=== PATIENT | male | born 1970 | race Caucasian/White ===

== ENCOUNTER → 2017-10-11 | Outpatient (CLI) | payer MEDICARE, OTHER ==
[2017-10-11 10:47] LABS: CH 29.8; CHCM 32.6; HCT 50.4 % (39.0-53.0); HDW 2.45; HGB 16.1 gm/dL (13.0-17.5); MCH 29.4 pg (25.0-35.0); MCV 91.9 fL (80.0-100.0); Mean Platelet Volume 7.4; RBC 5.48 m/uL (4.30-5.90); RDW 15.3 % (11.5-15.5)
[2017-10-11 11:11] LABS: Anion Gap 10 mmol/L; Blood Urea Nitrogen 13 mg/dL (9-20); Carbon Dioxide 26 mmol/L (22-30); Chloride 105 mmol/L (98-107); Non-African American GFR(MDRD) >60 (>60 ml/min/1.73 sqM); Potassium 4.7 mmol/L (3.5-5.1); Sodium 141 mmol/L (137-145)
== END | disposition home or self-care (01) ==
LOC: LABPAT 10:05
PROVIDERS: ATTEND Internal Medicine Interventional Cardiology
DX: Z01.812 Encounter for preprocedural laboratory examination (principal); I25.10 Atherosclerotic heart disease of native coronary artery without angina pectoris
CPT/HCPCS: 36415; 80051; 82565; 84520; 85027

== ENCOUNTER → 2018-09-03 | Outpatient (CLI) | payer MEDICARE, OTHER ==
--- NOTE | 2018-09-03 23:15 | CT ---
EXAMINATION TYPE: CT chest w con DATE OF EXAM: 09/03/2018 COMPARISON: 12/21/2014 HISTORY: 48-year-old male Chest pain, hx of stents, left lung base abnormality TECHNIQUE: Contiguous axial scanning of the chest after the administration of 100 mL of Isovue 300. Coronal/sagittal reconstructions performed. CT DLP: 494.3mGycm. Automatic exposure control utilized for a dose reduction. FINDINGS: Heart normal size without pericardial effusion. Aorta normal caliber with conventional arch vessel branching anatomy. There are nonenlarged mediastinal lymph nodes are present. No thoracic lymphadenopathy by CT size cri teria. Some linear high density material at the left apex suggestive of surgical material. Nodular thickenin g along the left major fissure extending from the mid lung down to the base is unchanged as is some f ocal subpleural areas of nodularity at the left base in the subpleural region measuring up to 1.7 cm. Additional posterior left basilar subpleural nodularity measuring 1.2 cm is also unchanged as are mu ltiple additional subpleural pulmonary nodules posteromedially measuring up to 7 mm. There is mild centrilobular emphysema without consolidation or pleural effusion. 4 mm pulmonary nodule right mid lung along the minor fissure is unchanged. Tiny hiatal hernia. Visualized upper abdomen shows no gross abnormality. There is a small anterior splenule and stable daniels bcentimeter cyst anterior left kidney. Bones: No osseous destructive process. IMPRESSION: 1. COPD with mild emphysema. 2. Stable pleural parenchymal scarring at the left apex and suggestion of prior surgery. 3. Additional stable thickening and nodularity along the left major fissure as well as in the subpleu ral region of the left base with nodularity measuring up to 1.7 cm. Stability for over 3 years sugges ts a benign etiology. 4. No acute pulmonary process.
== END | disposition home or self-care (01) ==
LOC: RADCTMAIN 16:22
PROVIDERS: ATTEND Family Medicine
DX: J43.9 Emphysema, unspecified (principal); J98.4 Other disorders of lung; R91.8 Other nonspecific abnormal finding of lung field
CPT/HCPCS: 71260; Q9967

== ENCOUNTER → 2018-09-14 | Outpatient (CLI) | payer MEDICARE, OTHER ==
--- NOTE | 2018-09-14 11:49 | ECHOS ---
STRESS ECHOCARDIOGRAM INDICATIONS: Chest pain. MEDICATIONS: Seroquel, aspirin. BASELINE HEART RATE: 83 BASELINE BLOOD PRESSURE: 104/65 MAXIMUM HEART RATE: 161 MAXIMUM BLOOD PRESSURE: 143/76 85% MPHR: 145 100% MPHR: 170 METS: 7.1 MAXIMUM STAGE REACHED: 2 TOTAL EXERCISE TIME: 5:30 CLINICAL INFORMATION: Baseline EKG shows sinus rhythm, normal axis, normal intervals, with nonspecific ST-T wave changes. Patient exercised on Tor protocol for a total of 5.5 minutes achieving 7 METS, 95% of predicted maximal heart rate without chest pain or diagnostic ST-segment depression. Baseline echo shows mildly enlarged left ventricle with moderate to severe LV dysfunction with an ejection fraction of 35%. There is hypokinesis involving inferior and inferoposterior wall suggestive of prior myocardial infarction. Post exercise there is hyperdynamic response of the anterior wall, anteroseptum in the lateral wall. Inferior inferoposterior and inferoseptal wall remain hypokinetic. CONCLUSION: 1. Poor exercise tolerance. 2. Negative stress test by EKG criteria. 3. Abnormal stress echo showing evidence of prior myocardial infarction with ischemic cardiomyopathy, moderate left ventricular dysfunction without any ischemia. MMODL / IJN: [id number] /
== END ==
LOC: RADNMMAIN 10:04
PROVIDERS: ATTEND Family Medicine
DX: I25.2 Old myocardial infarction (principal); I25.9 Chronic ischemic heart disease, unspecified; R07.9 Chest pain, unspecified; R06.2 Wheezing
CPT/HCPCS: C8930; Q9950; 93351

== ENCOUNTER 2023-10-30 00:24 | Inpatient (IN) | payer MEDICARE, OTHER ==
[2023-10-30] MEDS ORDERED: ATORVASTATIN 80 MG TAB PO STA (00:27)
[2023-10-30] MEDS ORDERED: HEPARIN SODIUM 1,000 UN/ML (10ML VL) IV ONE ×2 (00:27→01:10)
[2023-10-30] MEDS ORDERED: ONDANSETRON 4 MG/2 ML VIAL IVP STA (00:27)
[2023-10-30] MEDS ORDERED: NALOXONE 0.4 MG/ML 1 ML VIAL IV PRN (00:29)
[2023-10-30] MEDS ORDERED: SODIUM CHLORIDE 0.9% 1,000 ML IV ONE ×2 (00:34→01:35)
--- NOTE | 2023-10-30 00:35 | ED ---
General Adult HPI - General Chief complaint: Chest Pain Stated complaint: Chest pain Time Seen by Provider: 10/30/23 00:26 Source: EMS, RN notes reviewed, old records reviewed Mode of arrival: EMS - History of Present Illness Initial comments: 53-year-old male presenting with prehospital EKG showing ST segment elevation in the inferior leads. Patient having active chest pain and nausea vomiting. He states that he's been having intermittent chest pain for several weeks but then this acutely worsened within the past several hours and became associated with arm pain and significant nausea and vomiting. Patient has known coronary artery disease. - Related Data Home Medications Medication Instructions Recorded Confirmed QUEtiapine FUMARATE [SEROquel] 300 mg PO DAILY@1100 12/21/14 10/30/23 Allergies Allergy/AdvReac Type Severity Reaction Status Date / Time No Known Allergies Allergy Verified 10/30/23 07:23 Review of Systems ROS Statement: Those systems with pertinent positive or pertinent negative responses have been documented in the HPI. ROS Other: All systems not noted in ROS Statement are negative. Past Medical History Past Medical History: Coronary Artery Disease (CAD), Chest Pain / Angina, Hyperlipidemia, Hypertension, Myocardial Infarction ([place]) Additional Past Medical History / Comment(s): multipersonality disorder Last Myocardial Infarction Date:: NOV 2013 History of Any Multi-Drug Resistant Organisms: None Reported Past Surgical History: Heart Catheterization With Stent Additional Past Surgical History / Comment(s): nasal surg as child, chest tube for spontaneous pneumothorax Past Anesthesia/Blood Transfusion Reactions: No Reported Reaction Date of Last Stent Placement:: 2015 Past Psychological History: Anxiety, Bipolar, Depression, Schizophrenia Past Alcohol Use History: Abuse Past Drug Use History: None Reported - Past Family History Mother Family Medical History: No Reported History Father Family Medical History: No Reported History Additional Family Medical History / Comment(s): of "old age" General Exam General appearance: alert, in distress Head exam: Present: atraumatic, normocephalic Eye exam: Present: normal appearance, PERRL ENT exam: Present: normal exam Neck exam: Present: normal inspection Respiratory exam: Present: normal lung sounds bilaterally. Absent: respiratory distress, wheezes Cardiovascular Exam: Present: normal rhythm, tachycardia GI/Abdominal exam: Present: soft. Absent: distended, tenderness, guarding Neurological exam: Present: alert, oriented X3, CN II-XII intact. Absent: motor sensory deficit Psychiatric exam: Present: anxious Skin exam: Present: intact, diaphoretic, pallor Course Vital Signs 10/30/23 10/30/23 10/30/23 00:26 00:30 00:45 Temperature 97.9 F Pulse Rate 130 H 130 H 103 H Respiratory 18 18 18 Rate Blood Pressure 113/98 136/88 127/85 O2 Sat by Pulse 95 98 98 Oximetry Medical Decision Making - Medical Decision Making Was pt. sent in by a medical professional or institution (, PA, TABLEAU ANALYST, urgent care, hospital, or long term...) When possible be specific @ -No Did you speak to anyone other than the patient for history (EMS, parent, family, police, friend...)? What history was obtained from this source @ -Emetics Did you review nursing and triage notes (agree or disagree)? Why? @ -I reviewed and agree with nursing and triage notes Were old charts reviewed (outside hosp., previous admission, EMS record, old EKG, old radiological studies, urgent care reports/EKG's, long term records)? Report findings @ -No old charts were reviewed Differential Diagnosis (chest pain, altered mental status, abdominal pain women, abdominal pain men, vaginal bleeding, weakness, fever, dyspnea, syncope, headache, dizziness, GI bleed, back pain, seizure, CVA, palpatations, mental health, musculoskeletal)? @ -Differential Chest Pain: Stable Angina, Unstable Angina, STEMI, NSTEMI Aortic Dissection, Pneumothorax, Musculoskeletal, Esophageal Spasm GERD, Cholecystitis, Pancreatitis, Zoster, this is not meant to be an all-inclusive list. EKG interpreted by me (3pts min.). @ Prehospital EKG showing ST segment elevation inferiorly. EKG in the emergency department showing a ventricular rate of 140, MN interval 140, QRS duration 98, QTC 3 X-rays interpreted by me (1pt min.). @ -None done CT interpreted by me (1pt min.). @ -None done U/S interpreted by me (1pt. min.). @ -None done What testing was considered but not performed or refused? (CT, X-rays, U/S, labs)? Why? @ -None What meds were considered but not given or refused? Why? @ -None Did you discuss the management of the patient with other professionals (professionals i.e. , PA, TABLEAU ANALYST, lab, RT, psych nurse, mental health social worker, probe operator, teacher, air defence officer, briefcase sewer)? Give summary @ Dr. Wagner covering for cardiology Was smoking cessation discussed for >3mins.? @ -No Was critical care preformed (if so, how long)? @ -No Were there social determinants of health that impacted care today? How? (Homelessness, low income, unemployed, alcoholism, drug addiction, transportation, low edu. Level, literacy, decrease access to med. care, custodial, rehab)? @ -No Was there de-escalation of care discussed even if they declined (Discuss DNR or withdrawal of care, Hospice)? DNR status @ -No What co-morbidities impacted this encounter? (DM, HTN, Smoking, COPD, CAD, Cancer, CVA, ARF, Chemo, Hep., AIDS, mental health diagnosis, sleep apnea, morbid obesity)? @ -[Known coronary artery disease Was patient admitted / discharged? Hospital course, mention meds given and route, prescriptions, significant lab abnormalities, going to OR and other pertinent info. @ -53-year-old male with prehospital EKG showing ST segment elevation in the inferior leads. Engine Mechanic was activated. Patient presents in extremis, vomiting, diaphoretic, with active chest pain. Patient's will be taken urgently to the Engine Mechanic. Case discussed both with Dr. Wagner and Dr. Traylor, patient been given aspirin prehospital as well as nitroglycerin which he took at home. He is given Lipitor, heparin, Zofran in the emergency department. Undiagnosed new problem with uncertain prognosis? @ -No Drug Therapy requiring intensive monitoring for toxicity (Heparin, Nitro, Insulin, Cardizem)? @ -No Were any procedures done? @ -No Diagnosis/symptom? @ STEMI Acute, or Chronic, or Acute on Chronic? @ -Acute Uncomplicated (without systemic symptoms) or Complicated (systemic symptoms)? @ -default Side effects of treatment? @ -No Exacerbation, Progression, or Severe Exacerbation? @ -No Poses a threat to life or bodily function? How? (Chest pain, [place], [place], pneumonia, PE, COPD, DKA, ARF, appy, cholecystitis, CVA, Diverticulitis, Homicidal, Suicidal, threat to staff... and all critical care pts) @ Yes, STEMI - Lab Data Result diagrams: 12/19/23 03:36 10/30/23 07:25 Disposition Clinical Impression: STEMI (ST elevation myocardial infarction) Disposition: ADMITTED IP TO THIS HOSP Condition: Serious Is patient prescribed a controlled substance at d/c from ED?: No
[2023-10-30] MEDS ORDERED: IV FLUID CONTINUATION 1,000 ML IV ONE (00:51)
--- NOTE | 2023-10-30 00:58 | P.CRDCN ---
History of Present Illness History of present illness: HISTORY OF PRESENTING ILLNESS This is a 53-year-old with past medical history significant for CAD status post multiple PCI, last 2017, medical noncompliance, tobacco abuse. He does not follow my office with any videotape operator. He had LAD stenting to his LAD in 2017 however has had a number procedures 2013. He states he got sick of taking medications and therefore has not been taking any for quite some time. He has been noticing off and on chest pain over the last 1-2 months and was hoping it would go away on its own. Chest pain radiating down his left arm felt similar to his MIs in the past. It has been going on for 2 months with exertion. Tonight however pain started when he was not doing anything associated with nausea, diaphoresis and shortness breath. EKG initially from EMS showed Q waves 3 aVF with [address] elevation in 3 and aVF. Repeat EKG) presentation shows sinus tachycardia, normal axis, continued Q waves with minimal 0.[address] elevation 3 and [address]VF and diffuse ST depressions in the lateral leads. He states he is willing to take at least blood thinners. He states he does not want undergo bypass. He is still smoking. Occasional alcohol. Denies illicit drugs. Chest pain on presentation 8/10 And Currently Improved to a 2 Out Of 10. REVIEW OF SYSTEMS At the time of my exam: CONSTITUTIONAL: Denies fever or chills. CARDIOVASCULAR: +chest pain, +shortness of breath, no orthopnea, PND or palpitations. RESPIRATORY: Denies cough. GASTROINTESTINAL: Denies abdominal pain, diarrhea, constipation, nausea or vomiting. MUSCULOSKELETAL: Denies myalgias. NEUROLOGIC: Denies numbness, tingling or weakness. ENDOCRINE: Denies fatigue, weight change, polydipsia or polyurina. GENITOURINARY: Denies burning, hematuria or urgency with micturation. HEMATOLOGIC: Denies history of anemia or bleeding. PHYSICAL EXAMINATION Vital signs reviewed. CONSTITUTIONAL: No apparent distress. HEENT: Head is normocephalic. Pupils are equal, round. Sclerae anicteric. Mucous membranes of the mouth are moist. No JVD. No carotid bruit. CHEST EXAMINATION: Lungs are clear to auscultation. No chest wall tenderness is noted on palpation or with deep breathing. HEART EXAMINATION: Regular rate and rhythm. S1, S2 heard. No murmurs, gallops or rub. ABDOMEN: Soft, nontender. Positive bowel sounds. EXTREMITIES: 2+ peripheral pulses, no lower extremity edema and no calf tenderness. NEUROLOGIC EXAMINATION: Patient is awake, alert and oriented x3. ASSESSMENT 1. Acute coronary syndrome, initial Inferior STEMI however ST elevations have improved and inferior leads have Q waves with possible acute process. 2. CAD with prior history of PCI 3. Hypertension 4. Tobacco abuse 5. Medical noncompliance PLAN Patient's initial EKG showing more ST elevations however additionally has Q waves inferiorly. Likely some degree of subacute process with symptoms going on for 2 months however much worsened tonight. His chest pain has somewhat improved sense aspirin and heparin. He is still however having ongoing chest pain discussed urgent heart catheterization with possible PCI. Discussed tobacco cessation. Discussed medical compliance. Past Medical History Past Medical History: Coronary Artery Disease (CAD), Chest Pain / Angina, Hyperlipidemia, Hypertension, Myocardial Infarction ([place]) Additional Past Medical History / Comment(s): multipersonality disorder Last Myocardial Infarction Date:: NOV 2013 History of Any Multi-Drug Resistant Organisms: None Reported Past Surgical History: Heart Catheterization With Stent Additional Past Surgical History / Comment(s): nasal surg as child, chest tube for spontaneous pneumothorax Past Anesthesia/Blood Transfusion Reactions: No Reported Reaction Date of Last Stent Placement:: 2015 Past Psychological History: Anxiety, Bipolar, Depression, Schizophrenia Past Alcohol Use History: Abuse Past Drug Use History: None Reported - Past Family History Mother Family Medical History: No Reported History Medications and Allergies Home Medications Medication Instructions Recorded Confirmed Type Aspirin 325 mg PO DAILY 12/21/14 10/12/17 History QUEtiapine FUMARATE [SEROquel] 150 mg PO HS 12/21/14 10/12/17 History Atorvastatin Calcium [Lipitor] 80 mg PO HS 10/11/17 10/12/17 History Allergies Allergy/AdvReac Type Severity Reaction Status Date / Time No Known Allergies Allergy Verified 10/30/23 00:30 Physical Exam Vitals: Vital Signs Temp Pulse Resp BP Pulse Ox 10/30/23 00:26 97.9 F 130 H 18 113/98 95 Intake and Output 10/29/23 10/29/23 10/30/23 14:59 22:59 06:59 Other: Weight 102.965 kg Results Current Medications Generic Name Dose Route Start Last Admin Trade Name Freq PRN Reason Stop Dose Admin Sodium Chloride 1,000 mls @ 999 mls/hr 10/30/23 00:34 10/30/23 00:38 Saline 0.9% IV 10/30/23 01:34 999 mls/hr .Q1H1M ONE Administration Naloxone HCl 0.2 mg 10/30/23 00:29 Naloxone 0.4 Mg/Ml 1 Ml Vial IV Q2M PRN Opioid Reversal Intake and Output 10/29/23 10/29/23 10/30/23 14:59 22:59 06:59 Other: Weight 102.965 kg Patient Weight 10/30/23 06:59 Weight 102.965 kg
[2023-10-30 01:00] LABS: Basophils # (A) 0.1 k/uL (0-0.2); Basophils % (A) 1 %; Eosinophils # (A) 0.1 k/uL (0-0.7); Eosinophils % (A) 1 %; HCT 48.5 % (39.0-53.0); HGB 16.3 gm/dL (13.0-17.5); Lymphocytes # (A) 4.9 k/uL (1.0-4.8); Lymphocytes % (A) 42 %; MCH 29.6 pg (25.0-35.0); MCHC 33.6 g/dL (31.0-37.0); MCV 88.3 fL (80.0-100.0); Mean Platelet Volume 7.7; Monocytes # (A) 0.5 k/uL (0-1.0); Monocytes % (A) 5 %; Neutrophils # (A) 5.7 k/uL (1.3-7.7); Neutrophils % (A) 48 %; Platelet Count 289 k/uL (150-450); RBC 5.49 m/uL (4.30-5.90); RDW 14.4 % (11.5-15.5); WBC 11.7 k/uL (3.8-10.6)
[2023-10-30] MEDS ORDERED: MIDAZOLAM 2 MG/2 ML VIAL IVP ONE (01:01)
[2023-10-30] MEDS ORDERED: fentaNYL (PF) 50 MCG/ML 2 ML AMP IVP ONE (01:01)
[2023-10-30] MEDS ORDERED: fentaNYL (PF) 50 MCG/ML 2 ML AMP ONE (01:02)
[2023-10-30] MEDS ORDERED: HEPARIN SODIUM 1,000 UN/ML (10ML VL) ONE (01:02)
[2023-10-30] MEDS ORDERED: LIDOCAINE 1% INJ 10MG/ML (20 ML MDV) SQ ONE (01:02)
[2023-10-30] MEDS ORDERED: LIDOCAINE 1% INJ 10MG/ML (20 ML MDV) ONE (01:03)
[2023-10-30] MEDS ORDERED: VERAPAMIL 2.5 MG/ML 2 ML AMP ONE (01:03)
[2023-10-30] MEDS ORDERED: VERAPAMIL SYRINGE (5 MG/10 ML) INTRAARTER ONE (01:05)
--- NOTE | 2023-10-30 01:06 | XR ---
EXAM: XR Chest, 1 View CLINICAL HISTORY: ITS.REASON XR Reason: chest pain TECHNIQUE: Frontal view of the chest. COMPARISON: Chest CT dated 09/03/18, XR Chest dated 04/02/16 FINDINGS: Lungs: Stable left basilar pleural-parenchymal opacities. Stable left apical opacity. No new opacities. Pleural space: See above. No pneumothorax. Heart: Unremarkable. No cardiomegaly. Mediastinum: Unremarkable. Normal mediastinal contour. Bones/joints: Unremarkable. No acute fracture. IMPRESSION: 1. No evidence of acute cardiopulmonary disease. 2. Stable left basilar pleural-parenchymal opacities. Stable left apical opacity. Stable chronic findings.
[2023-10-30 01:12] LABS: INR 0.9 (<1.2); Partial Thromboplastin Time 29.4 sec (22.0-30.0); Prothrombin Time 10.2 sec (10.0-12.5)
[2023-10-30] MEDS: NITROGLYCERIN 1000MCG/10ML SYRINGE INTRACORON ONE ×2 (01:12→01:14)
[2023-10-30 01:15] LABS: ALT 29 U/L (4-49); AST 24 U/L (17-59); African American GFR (CKD) >90 (>60 ml/min/1.73 sqM); Albumin 4.4 g/dL (3.5-5.0); Alkaline Phosphatase 124 U/L (38-126); Anion Gap 15 mmol/L; Blood Urea Nitrogen 18 mg/dL (9-20); Calcium 9.6 mg/dL (8.4-10.2); Carbon Dioxide 20 mmol/L (22-30); Chloride 102 mmol/L (98-107); Glucose 175 mg/dL (74-99); Magnesium 2.2 mg/dL (1.6-2.3); Non-African American GFR(CKD) 85 (>60 ml/min/1.73 sqM); Potassium 4.1 mmol/L (3.5-5.1); Sodium 137 mmol/L (137-145); Total Bilirubin 0.5 mg/dL (0.2-1.3); Total Protein 7.6 g/dL (6.3-8.2)
[2023-10-30] MEDS ORDERED: METOPROLOL TARTRATE 12.5 MG TAB PO STA (01:25)
[2023-10-30] MEDS ORDERED: IOPAMIDOL-370 100ML BTL INJ ONE (01:35)
[2023-10-30] MEDS ORDERED: HEPARIN SOD,PORK IN 0.45% NACL 25,000 UNIT in 0.45% NACL 1 250ML.BAG IV ONE (01:36)
[2023-10-30] MEDS: HEPARIN SOD,PORK IN 0.45% NACL 25,000 UNIT in 0.45% NACL 1 250ML.BAG IV SCH ×2 (01:40→23:55)
[2023-10-30] MEDS: NITROGLYCERIN-D5W PMX 50 MG in DEXTROSE/WATER 1 250ML.BAG IV SCH (01:40)
--- NOTE | 2023-10-30 01:40 | P.CARDCATH ---
Description of Procedure: PROCEDURES PERFORMED: Left heart catheterization, bilateral coronary angiography, ultrasound guided arterial access INDICATION: Non-STEMI, acute coronary syndrome CONSENT:I have discussed the risks, benefits and alternative therapies for the above-mentioned procedure and for both sedation/analgesia as well as necessary blood product administration, if indicated, as they pertain to this patient. The patient has indicated understanding and acceptance of the risks and procedures discussed. PROCEDURE: After the risks, benefits and alternatives of the above mentioned procedure explained in detail with the patient, informed consent was obtained. Patient was taken to the catheterization lab and prepped and draped in usual fashion. Ultrasound guidance was used to assess for arterial access. 1% lidocaine was used to anesthetize the right radial artery. A 6-[place] sheath was placed in the right radial artery using modified Seldinger technique and ultrasound guidance. Left coronary angiography was performed with a 5-[place] JL 3.5 catheter and right coronary angiography was performed with a 5-[place] AR2 catheter in various views. A 5-[place] AR2 catheter was inserted into the left ventricle and pressure measurements were obtained. Patient with complex anatomy with culprit lesion possibly very small caliber RCA feeding collaterals to the circumflex with additional proximal LAD disease at the bifurcation. Circumflex stenosis is at the level of prior stenting from 2012. Patient currently states he is having 0-1 chest pain and EKG showing marked Q waves with ST elevations. Therefore we will attempt nitro drip, beta dede and heparin drip and evaluated patient for bypass. The right radial sheath was removed and a TR band was placed with hemostasis achieved. The patient tolerated the procedure well. Patient was transported back to the post catheterization holding area in stable condition. Conscious Sedation: Patient was monitored under the direct supervision of myself for conscious sedation using Versed and fentanyl for a total duration of 22 minutes HEMODYNAMICS: Aorta: 106/66 LV: 109/10, LVEDP 14 SELECTIVE CORONARY ARTERIOGRAPHY: LEFT MAIN: The left main is a large caliber vessel which bifurcates into the LAD and circumflex. There is mild distal 10% left main disease LEFT ANTERIOR DESCENDING CORONARY ARTERY: LAD is a large caliber vessel which wraps around to the apex. There is a proximal LAD 85% stenosis just prior to bifurcation of diagonal and LAD. There is a mid LAD stent just passed diagonal 1 branch which has a 30-40% in-stent stenosis. Mid LAD has a 40% stenosis. Apical LAD is free of disease. LEFT CIRCUMFLEX CORONARY ARTERY: Left circumflex is a moderate to large caliber vessel which supplies the PDA and is the dominant vessel. There is long diffuse 50-60% proximal circumflex stenosis. There are 2 small caliber OM1 and OM 2 branches and then a moderate caliber OM 3. Just after OM 3, there is 100% stenosis at the site of prior stenting. RIGHT CORONARY ARTERY: The right coronary artery is a small caliber vessel which gives off an acute marginal branch and is nondominant. There is a mid RCA 99% stenosis. There are right to left collaterals to the distal circumflex. FINAL IMPRESSION: 1. Multivessel CAD as described above including 99% small-caliber mid RCA, 50- 60% proximal circumflex, 100% mid circumflex, 85% proximal LAD stenosis. 2. Normal left sided filling pressures PLAN: 1. Aggressive risk factor modification per most recent ACC/AHA guidelines. 2. Patient with complex coronary artery disease and likely culprit vessel is small caliber RCA which is nondominant however supplying collaterals to distal circumflex. Small-caliber vessel and likely would not be able place a stent, circumflex more likely subacute to chronic with collaterals and also at the site of prior stenting with increased risk of restenosis of any further stenting. Additionally has already undergone stenting of the LAD with 85% proximal LAD stenosis at the level of bifurcation. Given 0 to minimal chest pain we will attempt nitro and antianginals with low-dose metoprolol and evaluated the patient for CABG as this would be his best option for revascularization. Patient initially hesitant for any discussion of surgery however after further discussion patient is agreeable to further assessment.
[2023-10-30] MEDS ORDERED: RX INFO: IV CONTRAST WAS GIVEN 1 EACH MISC MISCELLANE PRN (01:47)
[2023-10-30 01:59] LABS: Glucose,Whole Blood 101 mg/dL (70-110)
[2023-10-30] MEDS ORDERED: NITROGLYCERIN-D5W PMX 50 MG in DEXTROSE/WATER 1 250ML.BAG IV SCH (02:00)
[2023-10-30] MEDS: METOPROLOL TARTRATE 12.5 MG TAB PO SCH ×4 (02:32→21:03)
[2023-10-30] MEDS: SODIUM CHLORIDE 0.9% 1,000 ML IV SCH ×2 (02:35→18:18)
[2023-10-30 02:49] LABS: Basophils # (A) 0.1 k/uL (0-0.2); Basophils % (A) 1 %; Eosinophils # (A) 0.1 k/uL (0-0.7); Eosinophils % (A) 1 %; HCT 43.6 % (39.0-53.0); HGB 14.4 gm/dL (13.0-17.5); Lymphocytes # (A) 2.2 k/uL (1.0-4.8); Lymphocytes % (A) 22 %; MCH 29.6 pg (25.0-35.0); MCHC 33.1 g/dL (31.0-37.0); MCV 89.4 fL (80.0-100.0); Mean Platelet Volume 7.8; Monocytes # (A) 0.5 k/uL (0-1.0); Monocytes % (A) 5 %; Neutrophils # (A) 7.2 k/uL (1.3-7.7); Neutrophils % (A) 71 %; Platelet Count 237 k/uL (150-450); RBC 4.88 m/uL (4.30-5.90); RDW 14.3 % (11.5-15.5); WBC 10.1 k/uL (3.8-10.6)
[2023-10-30 03:10] LABS: Prothrombin Time 10.9 sec (10.0-12.5)
[2023-10-30 07:51] LABS: African American GFR (CKD) >90 (>60 ml/min/1.73 sqM); Anion Gap 4 mmol/L; Blood Urea Nitrogen 15 mg/dL (9-20); Calcium 8.8 mg/dL (8.4-10.2); Carbon Dioxide 25 mmol/L (22-30); Chloride 107 mmol/L (98-107); Glucose 110 mg/dL (74-99); Non-African American GFR(CKD) >90 (>60 ml/min/1.73 sqM); Sodium 136 mmol/L (137-145)
[2023-10-30] MEDS: ASPIRIN 81 MG PO SCH (08:10)
[2023-10-30] MEDS: HEPARIN SODIUM 1,000 UN/ML (10ML VL) IV PRN ×2 (08:10→15:40)
--- NOTE | 2023-10-30 09:32 | PN ---
PROGRESS NOTE HISTORY: Mr. Harding is in sinus rhythm. He presented with a [id number] TX. Cardiac cath revealed severe triple-vessel disease. He has had multiple stents in the past. He smokes 1-1/2 packs a day. He will be better off with bypass surgery. Dr. Wagner talked to him earlier, and I spoke to him as well today, advised that he will need to make some serious lifestyle changes and also be compliant with medications. PHYSICAL EXAMINATION: VITAL SIGNS: Stable. His chest pain has improved. Blood pressure is about 95 to 105 systolic. Urine output is fair, was on 5 mcg of nitroglycerin drip and also heparin drip. Dr. Sebastian has seen him and workup is in progress for aortocoronary bypass surgery. Vital signs are stable. NECK: No JVD. HEART: S1, S2 heard normally. Short systolic murmur noted. LUNGS: Revealed decent air entry. ABDOMEN: Soft. EXTREMITIES: Lower extremities reveal diminished pulses. Cath site in the right radial is clean and dry. Recommendation for aortocoronary bypass surgery, lifestyle changes, and compliance with medications. Workup in progress. MMODL / IJN: [id number] /
--- NOTE | 2023-10-30 10:03 | US ---
EXAMINATION TYPE: US carotid duplex BILAT DATE OF EXAM: 10/30/2023 COMPARISON: NONE CLINICAL INDICATION: Male, 53 years old with history of preop cardiac surgery; Preop cardiac surgery. TECHNIQUE: Carotid duplex ultrasound examination. Indirect Doppler criteria was utilized. FINDINGS: EXAM MEASUREMENTS: RIGHT: Peak Systolic Velocity (PSV) cm/sec ----- Right CCA: 87.5 ----- Right ICA: 149.6 ----- Right ECA: 176.6 ICA/CCA ratio: 1.7 RIGHT: End Diastole cm/sec ----- Right CCA: 20.4 ----- Right ICA: 47.8 ----- Right ECA: 11.0 LEFT: Peak Systolic Velocity (PSV) cm/sec ----- Left CCA: 97.4 ----- Left ICA: 196.6 ----- Left ECA: 168.6 ICA/CCA ratio: 2.0 LEFT: End Diastole cm/sec ----- Left CCA: 17.1 ----- Left ICA: 24.6 ----- Left ECA: 15.0 VERTEBRALS (direction of flow): Right Vertebral: Antegrade Left Vertebral: Flow appears to be bidirectional, above and below the baseline.-Question partial/in complete subclavian steel? Rhythm: Normal GLOBAL SAFETY OFFICER NOTES: Minimal plaque seen within bilateral bulbs. Elevated velocities seen within bila teral ICA, right ECA, left bulb, and left ECA. IMPRESSION: Atheromatous plaquing contributing to moderate stenosis, between 50 and 69%, bilateral internal carot id arteries based on velocity. Criteria for Assigning % of Stenosis / Diameter reduction (Estimation based on the indirect measurements of the internal carotid artery velocities (ICA PSV). 1. Normal (no stenosis)=ICA PSV < 125 cm/s: ratio < 2.0: ICA EDV<40 cm/s. 2. Less than 50% stenosis=ICA PSV < 125 cm/s: ratio < 2.0: ICA EDV<40 cm/s. 3. 50 to 69% stenosis=ICA PSV of 125 to 230 cm/s: ration 2.0 ? 4.0: ICA EDV 40-100 cm/s. 4. Greater than 70% stenosis to near occlusion= ICA PSV > 230 cm/s: ratio > 4.0: ICA EDV > 100 cm/s. 5. Near occlusion= ICA PSV velocities may be low or undetectable: variable ratio and ICA EDV. 6. Total occlusion=unable to detect flow.
--- NOTE | 2023-10-30 10:04 | US ---
EXAMINATION TYPE: Pre-Operative Non-Invasive Evaluation of the hand for Potential Radial Artery Pepito chang, Measurements only DATE OF EXAM: 10/30/2023 9:32 AM CLINICAL INDICATION: Male, 53 years old with history of measurements only; Pre op cardiac surgery SIDE PERFORMED: Left TECHNIQUE: Radial artery is measured utilizing real time linear array sonography. Dominant hand: Left Duplex Findings: Radial Artery: Color flow seen Measurements in mm, transverse view: Left Radial: Proximal: 5.2 x 4.1 mm Mid: 4.3 x 3.9 mm Distal: 4.0 x 3.5 mm IMPRESSION: 1. No suspicious stenosis left radial artery.
[2023-10-30] MEDS ORDERED: QUEtiapine 100 MG TAB PO SCH (11:00)
--- NOTE | 2023-10-30 11:35 | US ---
EXAMINATION TYPE: US vein mapping BIL DATE OF EXAM: 10/30/2023 9:56 AM COMPARISON: NONE CLINICAL INDICATION: Male, 53 years old with history of preop cardiac surgery; Preop cardiac surgery. Patient is poor historian. SIDE PERFORMED: Bilateral TECHNIQUE: Lower extremity saphenous vein is examined and measured utilizing real time linear array sonography. Patient History: Smoker: yes Heart Disease: yes Previous DVT: no Vascular Surgery: yes, hx cardiac stents Discoloration: no Hypertension: patient unsure Diabetes: no Paralysis: no Varicosities: no Edema: no DUPLEX FINDINGS: Greater Saphenous: Color flow seen Measurements in mm: Right Greater Saphenous: Groin: 6.6 x 6.0 mm High Thigh: 5.1 x 3.9 mm Mid Thigh: 5.1 x 3.9 mm Above Knee: 3.8 x 3.5 mm Knee: 5.0 x 3.6 mm Below Knee: 4.3 x 3.6 mm Mid Calf: 3.5 x 2.4 mm At Ankle: 4.7 x 3.2 mm Left Greater Saphenous: Groin: 5.7 x 6.3 mm High Thigh: 3.9 x 4.2 mm Mid Thigh: 5.5 x 4.1 mm Above Knee: 4.4 x 3.5 mm Knee: 4.6 x 3.2 mm Below Knee: 3.8 x 3.4 mm Mid Calf: 3.9 x 3.5 mm At Ankle: 3.4 x 2.9 mm IMPRESSION: 1. Vein mapping for surgical evaluation
[2023-10-30 11:49] LABS: Hepatitis A Antibody IgM Nonreactive; Hepatitis B Core IgM Nonreactive; Hepatitis B Surface Antigen Nonreactive; Hepatitis C IgG Antibody Nonreactive
--- NOTE | 2023-10-30 12:36 | CT ---
EXAMINATION TYPE: CT chest wo con CT DLP: 541.4 mGycm, Automated exposure control for dose reduction was used. DATE OF EXAM: 10/30/2023 11:16 AM COMPARISON: None. . CLINICAL INDICATION:Male, 53 years old with history of eval aorta for calcification, clampability; PH H, eval aorta for calcification, clampability TECHNIQUE: Multiple axial images were obtained through the chest. Sagittal and coronal reformats were created for review. Contrast used: mL of (None if empty) Oral contrast used: (None if empty) FINDINGS: Exam is limited by lack of contrast. LOWER NECK: No significant findings. HEART: Upper normal in size. Moderate to heavy coronary arterial calcifications, greatest on the left . Mitral annular calcification suggested. No significant pericardial effusion. VASCULATURE: Aorta appears normal in size and contour. No TAA is seen. There is mild/moderate scatte red calcified plaque, mostly along the arch, origins of the brachiocephalic and left subclavian arter ies, and distributed throughout the descending and upper abdominal aorta. There is a partially visual ized infrarenal aortic aneurysm measuring at least 4.2 x 3.9 cm, however incompletely assessed. Pulmonary trunk measures 3.3 cm, this can be seen with pulmonary hypertension. MEDIASTINUM: No gross evidence of adenopathy. LUNGS/ PLEURA: Mild emphysematous changes. Linear and bandlike areas of presumed scarring in the left lung. Scarring and linear radiodensities towards the left lung apex, may reflect postoperative glez es such as from partial pneumonectomy. There are multiple areas of mild pleural thickening throughout the left hemithorax, not definitely calcified. Some areas have a slightly nodular appearance without a discrete pleural-based mass seen. One could consider CT follow-up to ensure stability. No pleural effusion or pneumothorax. AIRWAY: Central airways are patent. Mild frothy secretion in the mid trachea on the right. MUSCULOSKELETAL: Mild diffuse degenerative changes. No clearly acute bony abnormalities. SOFT TISSUES: Nonenlarged bilateral axillary nodes. Small lipoma in the left pectoralis minor. UPPER ABDOMEN: Partially visualized AAA as above. Low-attenuation 2.3 cm left renal nodule superiorly , very likely a cyst. Smaller partially exophytic nodule anteriorly at this level, and posteriorly in the mid kidney, are not fully characterized, could be complex/hemorrhagic cysts versus solid lesions . Liver appears slightly heterogeneous. Gallbladder appears contracted. IMPRESSION: 1. Heart size upper normal. Moderate to heavy coronary arterial calcifications, greatest on the left . 2. Thoracic aorta appears normal in size and contour. No TAA is seen. Mild/moderate scattered calcif ied plaque, mostly along the arch, origins of the brachiocephalic and left subclavian arteries, and d istributed throughout the descending and upper abdominal aorta. 3. Partially visualized infrarenal abdominal aortic aneurysm measuring at least 4.2 x 3.9 cm, howeve r incompletely assessed. 4. Mildly prominent pulmonary trunk, can be seen with pulmonary hypertension. 5. Mild pulmonary emphysematous changes. Linear and bandlike areas of presumed scarring in the left lung. Multiple areas of mild pleural thickening throughout the left hemithorax, not definitely calcif ied. Some areas have a slightly nodular appearance without a discrete pleural-based mass seen. One co uld consider CT follow-up to ensure stability. 6. Left renal nodules, the largest is convincingly a cyst while two smaller lesions are nonspecific, could represent complex/hemorrhagic cysts with solid lesions not excluded. Further evaluation could begin with nonemergent outpatient renal ultrasound.
--- NOTE | 2023-10-30 12:57 | CA ---
Transthoracic Echo Report Name: Man Harding Age: 53 Gender: M : 1970 Exam Date: 10/30/2023 09:55 Exam Location: [place] [facility] Ht (in): 72 Wt (lb): 227 Ordering Physician: Chandrakant Wagner DO ([email or web address]) Attending/Referring Phys: [employer] Mindi Marcus RDCS Procedure CPT: Indications: RE: ACS Cardiac Hx: Technical Quality: Technically difficult study Contrast 1: Definity Total Dose (mL): 2 Contrast 2: Total Dose (mL): MEASUREMENTS (Male / Female) Normal Values 2D ECHO LV Diastolic Diameter PLAX 4.9 cm 4.2 - 5.9 / 3.9 - 5.3 cm LV Systolic Diameter PLAX 3.9 cm IVS Diastolic Thickness 1.3 cm 0.6 - 1.0 / 0.6 - 0.9 cm LVPW Diastolic Thickness 1.2 cm 0.6 - 1.0 / 0.6 - 0.9 cm LV Relative Wall Thickness 0.5 RV Internal Dim ED PLAX 2.8 cm LA Systolic Diameter LX 3.4 cm 3.0 - 4.0 / 2.7 - 3.8 cm LV Diastolic Volume MOD BP 121.1 cm??? 67 - 155 / 56 - 104 cm??? LV Systolic Volume MOD BP 66.6 cm??? / 19 - 49 cm??? LV Ejection Fraction MOD BP 45.0 % >= 55 % LV Cardiac Index MOD BP 1955.1 cm???/min???m??? LV Diastolic Volume MOD 4C 106.0 cm??? LV Systolic Volume MOD 4C 49.6 cm??? LV Ejection Fraction MOD 4C 53.2 % LV Cardiac Index MOD 4C 2025.5 cm???/min???m??? LV Diastolic Length 4C 8.7 cm LV Systolic Length 4C 7.6 cm LV Diastolic Volume MOD 2C 119.9 cm??? LV Systolic Volume MOD 2C 87.7 cm??? LV Ejection Fraction MOD 2C 26.8 % LV Cardiac Index MOD 2C 1154.3 cm???/min???m??? LV Diastolic Length 2C 7.4 cm LV Systolic Length 2C 7.4 cm LA Volume 62.5 cm??? / 22 - 52 cm??? LA Volume Index 27.0 cm???/m??? 16 - 28 cm???/m??? M-MODE Aortic Root Diameter MM 3.7 cm MV E Point Septal Separation 1.5 cm AV Cusp Separation MM 2.5 cm DOPPLER AV Peak Velocity 131.0 cm/s AV Peak Gradient 6.9 mmHg MV Area PHT 4.2 cm??? Mitral E Point Velocity 93.6 cm/s Mitral A Point Velocity 63.2 cm/s Mitral E to A Ratio 1.5 MV Deceleration Time 179.2 ms MV E' Velocity 11.0 cm/s Mitral E to MV E' Ratio 8.5 FINDINGS Left Ventricle Left ventricular ejection fraction is estimated at 45-50 %. Left ventricular cavity size normal. Mildly increased left ventricular wall thickness. Mildly increased left ventricular systolic volume. Inferior and inferoseptal hypokinesis Right Ventricle Normal right ventricular size. Unable to estimate the right ventricular systolic pressure. Right Atrium Normal right atrial size. Left Atrium Mildly increased left atrial volume. Mitral Valve Structurally normal mitral valve. No mitral stenosis, regurgitation or prolapse. Aortic Valve Trileaflet aortic valve. No aortic valve stenosis or regurgitation. Tricuspid Valve Structurally normal tricuspid valve. No tricuspid stenosis, regurgitation or prolapse. Pulmonic Valve Pulmonic valve not well visualized. No pulmonic regurgitation. Pericardium No pericardial effusion. Aorta Normal size aortic root and proximal ascending aorta. CONCLUSIONS Technically difficult study. Definity ECHO contrast used for improved visualization of the endocardial borders (inadequate visualization of two or more contiguous segments). Mildly impaired left ventricle systolic function with segmental wall motion abnormality Very limited Doppler study Previewed by: Dr. Dalton Lyn MD (Electronically Signed) Final Date: 30 October 2023 12:57
--- NOTE | 2023-10-30 13:18 | P.GSCN ---
History of Present Illness Consult date: 10/30/23 Reason for Consult: Coronary artery disease, STEMI this admission Requesting physician: Chandrakant Wagner History of present illness: This is a 53 year old male who follow outpatient with Dr. Traylor for primary care. He has a previous medical history of CAD with myocardial infarction with multiple previous PCI, hypertension, hyperlipidemia, spontaneous pneumothorax 25 years ago, multiple psychiatric diagnoses, current tobacco dependence since he was 4 years old, daily etoh use, and medication non-compliance. He presented to [facility] with complaints of exertional intermittent chest pain for the last 1-2 months, which suddenly increased in the last 24 hours with radiation down his left arm associated with shortness of breath, nausea, diaphoresis, and now was happening at rest. He presented via EMS, EKG demonstrated sinus rhythm with minimal elevation in lead 3 and aVf, and ST depression in the lateral leads. He was diagnosed with inferior wall STEMI and taken to the crime lab technician by Dr. Wagner. Heart cath demonstrated mid RCA stenosis 99%, proximal circumflex stenosis 50-60% with mid circumflex stenosis 100%, and proximal LAD stenosis 85%. Due to these findings consultation was placed to Dr. Sebastian from cardiothoracic surgery for surgical revascularization recommendations. Review of Systems ROS completed and negative except as noted - Cardiovascular Reports as per HPI, Reports chest pain, Reports shortness of breath - Gastrointestinal Reports nausea, Reports vomiting Past Medical History Past Medical History: Coronary Artery Disease (CAD), Chest Pain / Angina, Hyperlipidemia, Hypertension, Myocardial Infarction (TN) Last Myocardial Infarction Date:: NOV 2013 History of Any Multi-Drug Resistant Organisms: None Reported Past Surgical History: Heart Catheterization With Stent Additional Past Surgical History / Comment(s): nasal surg as child, chest tube for spontaneous pneumothorax Past Anesthesia/Blood Transfusion Reactions: No Reported Reaction Date of Last Stent Placement:: 2015 Past Psychological History: Anxiety, Bipolar, Depression, Schizophrenia Additional Psychological History / Comment(s): "multipersonality disorder" Smoking Status: Current every day smoker Past Alcohol Use History: Abuse Additional Past Alcohol Use History / Comment(s): 1-1 1/2ppd since age of 4, decreased drinking to a beer every few days from being a heavy drinker (6pack - 12 pack per week currently) Past Drug Use History: None Reported - Past Family History Mother Family Medical History: No Reported History Additional Family Medical History / Comment(s): of "old age" Father Family Medical History: No Reported History Additional Family Medical History / Comment(s): of "old age" Medications and Allergies Home Medications Medication Instructions Recorded Confirmed Type QUEtiapine FUMARATE [SEROquel] 300 mg PO DAILY@1100 12/21/14 10/30/23 History Allergies Allergy/AdvReac Type Severity Reaction Status Date / Time No Known Allergies Allergy Verified 10/30/23 07:23 Surgical - Exam Vital Signs Temp Pulse Resp BP Pulse Ox 97.9 F 130 H 18 113/98 95 10/30/23 00:26 10/30/23 00:26 10/30/23 00:26 10/30/23 00:26 10/30/23 00:26 CONSTITUTIONAL: Awake and alert, appears comfortable, cooperative, no pain, no acute distress EYES: Pupils equal, round, reactive to light, normal ocular movement ENT: Moist mucous membranes without oral lesions present NECK: No masses, no bruits, trachea midline RESPIRATORY: Lungs sounds diminished bilaterally. Respirations even, nonlabored. Currently on 2 L nasal cannula with oxygen saturation 93%. Strong cough. No chest wall deformities. No clubbing or cyanosis present CARDIOVASCULAR: S1, S2 present. Regular rate and rhythm, sinus rhythm on telemetry. Palpable peripheral pulses bilaterally. No edema present. No calf pain or tenderness noted. No significant lower extremity varicosities noted GASTROINTESTINAL: Abdomen soft, nontender, nondistended without masses or organomegaly noted. There is no rebound or guarding present. Active bowel sounds present 4 quadrants. GENITOURINARY: Deferred INTEGUMENTARY: Skin is warm and dry NEUROLOGIC: Cranial nerves II through XII intact, normal coordination, no obvious motor or sensory deficits, speech is normal MUSKULOSKELETAL: Able to move all extremities, strength equal bilaterally, normal posture PSYCHIATRIC: Alert and oriented to person place and time, appropriate affect, intact judgment and insight Results - Labs 10/30/23 02:00 10/30/23 07:25 Abnormal Lab Results - Last 24 Hours (Table) 10/30/23 10/30/23 10/30/23 Range/Units 00:41 00:41 02:00 WBC 11.7 H (3.8-10.6) k/uL Lymphocytes # 4.9 H (1.0-4.8) k/uL APTT 123.0 H* (22.0-30.0) sec Sodium (137-145) mmol/L Carbon Dioxide 20 L (22-30) mmol/L Glucose 175 H (74-99) mg/dL Troponin I (0.000-0.034) ng/mL 10/30/23 10/30/23 10/30/23 Range/Units 07:25 07:25 07:25 WBC (3.8-10.6) k/uL Lymphocytes # (1.0-4.8) k/uL APTT 31.6 H (22.0-30.0) sec Sodium 136 L (137-145) mmol/L Carbon Dioxide (22-30) mmol/L Glucose 110 H (74-99) mg/dL Troponin I 6.950 H* (0.000-0.034) ng/mL Diabetes panel 10/30/23 10/30/23 10/30/23 Range/Units 00:41 07:25 07:25 Sodium 137 136 L (137-145) mmol/L Potassium 4.1 4.0 (3.5-5.1) mmol/L Chloride 102 107 (98-107) mmol/L Carbon Dioxide 20 L 25 (22-30) mmol/L BUN 18 15 (9-20) mg/dL Creatinine 0.99 0.83 (0.66-1.25) mg/dL Glucose 175 H 110 H (74-99) mg/dL Hemoglobin A1c 5.6 (<=6.0) % Calcium 9.6 8.8 (8.4-10.2) mg/dL AST 24 (17-59) U/L ALT 29 (4-49) U/L Alkaline Phosphatase 124 (38-126) U/L Total Protein 7.6 (6.3-8.2) g/dL Albumin 4.4 (3.5-5.0) g/dL Thyroid panel 10/30/23 Range/Units 07:25 TSH 0.954 (0.465-4.680) mIU/L Calcium panel 10/30/23 10/30/23 Range/Units 00:41 07:25 Calcium 9.6 8.8 (8.4-10.2) mg/dL Albumin 4.4 (3.5-5.0) g/dL Pituitary panel 10/30/23 10/30/23 Range/Units 00:41 07:25 Sodium 137 136 L (137-145) mmol/L Potassium 4.1 4.0 (3.5-5.1) mmol/L Chloride 102 107 (98-107) mmol/L Carbon Dioxide 20 L 25 (22-30) mmol/L BUN 18 15 (9-20) mg/dL Creatinine 0.99 0.83 (0.66-1.25) mg/dL Glucose 175 H 110 H (74-99) mg/dL Calcium 9.6 8.8 (8.4-10.2) mg/dL TSH 0.954 (0.465-4.680) mIU/L Adrenal panel 10/30/23 10/30/23 Range/Units 00:41 07:25 Sodium 137 136 L (137-145) mmol/L Potassium 4.1 4.0 (3.5-5.1) mmol/L Chloride 102 107 (98-107) mmol/L Carbon Dioxide 20 L 25 (22-30) mmol/L BUN 18 15 (9-20) mg/dL Creatinine 0.99 0.83 (0.66-1.25) mg/dL Glucose 175 H 110 H (74-99) mg/dL Calcium 9.6 8.8 (8.4-10.2) mg/dL Total Bilirubin 0.5 (0.2-1.3) mg/dL AST 24 (17-59) U/L ALT 29 (4-49) U/L Alkaline Phosphatase 124 (38-126) U/L Total Protein 7.6 (6.3-8.2) g/dL Albumin 4.4 (3.5-5.0) g/dL - Imaging Chest x-ray: report reviewed, image reviewed EKG: image reviewed Additional studies: Heart catheterization films reviewed with Dr. Sebastian Assessment and Plan Assessment: Triple-vessel coronary artery disease, inferior wall STEMI this admission Chest pain, shortness of breath, secondary to above New finding of bilateral internal carotid artery stenosis 50-69% Bidirectional left vertebral flow, questionable partial/incomplete subclavian steal History of CAD with myocardial infarction with multiple previous PCI Hypertension Hyperlipidemia Spontaneous pneumothorax 25 years ago Multiple psychiatric diagnoses Current tobacco dependence since he was 4 years old Daily etoh use with history of abuse Medication non-compliance Plan: The patient was seen and examined sitting up in bed in the intensive care unit in no acute distress. is present. Chart/diagnostics reviewed. Dr. Sebastian did discuss risk factor modification with the patient after he stated he stopped taking his medications because he "doesn't believe in medicine". The usual perioperative course was discussed in detail with the patient and his , risks and benefits were reviewed, all questions were answered. The patient is willing to consider surgery. Preoperative testing initiated, we'll calculate STS risk score once completed and discuss with the patient. Recommend aspirin, statin, beta dede therapy. Patient was counseled regarding need for complete smoking cessation. Risk factor modification. Increase activity as tolerated. Once bedside spirometry completed will consult pulmonology for clearance and lung function optimization. Medical management of other comorbidities per internal medicine, cardiology. More recommendations to follow. Thank you Dr. Wagner for this consult. We will continue to follow along with you. I have personally seen and examined the patient, performed the documentation and the assessment and plan as written. Number of minutes spent on the visit: 30. TE Lenz
[2023-10-30 15:37] LABS: Chol/HDL Ratio 7.74 Ratio; LDL Cholesterol,Calculated 159.9 mg/dL (0.0-131.0)
[2023-10-30] MEDS: FOLIC ACID 1 MG TAB PO SCH (18:17)
[2023-10-30] MEDS: THIAMINE 100 MG TAB PO SCH (18:17)
[2023-10-30] MEDS ORDERED: ATORVASTATIN 40 MG TAB PO SCH (21:00)
[2023-10-30] MEDS: QUEtiapine 100 MG TAB PO SCH (21:05)
[2023-10-30] MEDS: MUPIROCIN 2% OINT 22 GM TUBE NASAL SCH (21:06)
[2023-10-31] MEDS: NITROGLYCERIN-D5W PMX 50 MG in DEXTROSE/WATER 1 250ML.BAG IV SCH (00:56)
[2023-10-31 03:48] LABS: Basophils # (A) 0.1 k/uL (0-0.2); Basophils % (A) 1 %; Eosinophils # (A) 0.1 k/uL (0-0.7); Eosinophils % (A) 1 %; HCT 43.6 % (39.0-53.0); HGB 14.7 gm/dL (13.0-17.5); Lymphocytes # (A) 3.9 k/uL (1.0-4.8); Lymphocytes % (A) 34 %; MCH 29.9 pg (25.0-35.0); MCHC 33.7 g/dL (31.0-37.0); MCV 88.7 fL (80.0-100.0); Mean Platelet Volume 7.3; Monocytes # (A) 0.5 k/uL (0-1.0); Monocytes % (A) 4 %; Neutrophils # (A) 6.6 k/uL (1.3-7.7); Neutrophils % (A) 58 %; Platelet Count 225 k/uL (150-450); RBC 4.91 m/uL (4.30-5.90); RDW 14.4 % (11.5-15.5); WBC 11.5 k/uL (3.8-10.6)
[2023-10-31 03:58] LABS: Prothrombin Time 10.6 sec (10.0-12.5)
[2023-10-31] MEDS: SODIUM CHLORIDE 0.9% 1,000 ML IV SCH (04:49)
--- NOTE | 2023-10-31 04:58 | HP ---
HISTORY AND PHYSICAL CHIEF COMPLAINT: Chest pain. HISTORY OF PRESENT ILLNESS: First known hospital admission for this 53-year-old male. He has not been in the office since March 2022. Does have a history of schizophrenia. He has always been uncooperative when it comes to annual physical exams, keeping followup appointments, etc. When he was seen in 2021, he was on Seroquel. Apparently, he has not been on any medications lately. He has been a smoker. He was told on numerous occasions that he should undergo routine annual studies such as lipid profile, blood sugar, renal functions, etc. He has been a fairly heavy smoker of at least a pack of cigarettes a day. 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 Apparently, 1 stent was placed, but he has significant atherosclerosis in another vessels. REVIEW OF SYSTEMS: At the present time, he is comfortable with no chest pain, or shortness of breath. He has had no arrhythmias. Past medical history, family history, and personal and social histories are otherwise unremarkable and unchanged from the history detailed above. PHYSICAL EXAMINATION: VITAL SIGNS: Blood pressure is 93/62 with a pulse of 78, respirations of 32. He is afebrile. GENERAL: Appeared to be comfortable. SKIN: Dry. HEAD, EARS, EYES, NOSE, MOUTH AND THROAT: Normal. CHEST: Clear. CARDIAC: Normal with sinus rhythm. ABDOMEN: Soft, nontender. EXTREMITIES: Normal. NEUROLOGICAL: He is intact. ASSESSMENT: He is admitted to the hospital with diagnoses of: 1. Acute ST elevation myocardial infarction. 2. Chronic obstructive pulmonary disease. 3. Schizophrenia. PLAN: Move forward with his cardiac care. It will be interesting to see if he becomes more compliant with regard to preventive services in the future. MMODL / IJN: [id number] /
[2023-10-31 09:08] LABS: African American GFR (CKD) >90 (>60 ml/min/1.73 sqM); Anion Gap 8 mmol/L; Blood Urea Nitrogen 13 mg/dL (9-20); Carbon Dioxide 26 mmol/L (22-30); Chloride 104 mmol/L (98-107); Glucose 89 mg/dL (74-99); Non-African American GFR(CKD) >90 (>60 ml/min/1.73 sqM); Sodium 138 mmol/L (137-145)
[2023-10-31] MEDS: METOPROLOL TARTRATE 12.5 MG TAB PO SCH ×2 (09:22→20:40)
[2023-10-31] MEDS: FOLIC ACID 1 MG TAB PO SCH (09:22)
[2023-10-31] MEDS: ASPIRIN 81 MG PO SCH (09:22)
[2023-10-31] MEDS: THIAMINE 100 MG TAB PO SCH (09:23)
[2023-10-31] MEDS: MUPIROCIN 2% OINT 22 GM TUBE NASAL SCH ×2 (09:24→20:42)
[2023-10-31] MEDS: HEPARIN SODIUM 1,000 UN/ML (10ML VL) IV PRN (11:01)
--- NOTE | 2023-10-31 11:40 | PN ---
PROGRESS NOTE SUBJECTIVE: Mr. Harding has severe triple-vessel disease and non-ST elevation OH. I am recommending he should have aortocoronary bypass surgery. The patient had a lot of questions. I spent a lot of time explaining to him the rationale for bypass surgery and the need to modify lifestyle and be compliant with medications thereafter. He is going to think this over and if he wishes to have surgery, we will have the cardiac surgery set him up. Yesterday he was seen at length by Dr. Sebastian, who also spoke to him as well. OBJECTIVE: VITALS: Stable. HEART: S1-S2 heard normally. No significant murmurs. LUNGS: Bilateral decent air entry. ABDOMEN: Unchanged. EXTREMITIES: Lower extremity exam is unchanged. Prognosis remains guarded. MMODL / IJN: [id number] /
--- NOTE | 2023-10-31 12:19 | P.PN ---
Subjective Progress Note Date: 10/31/23 Principal diagnosis: Triple-vessel coronary artery disease, inferior wall STEMI this admission, new finding of bilateral internal carotid artery stenosis 50-69%, bidirectional left vertebral flow, questionable partial/incomplete subclavian steal. History of CAD with myocardial infarction with multiple previous PCI, hypertension, hyperlipidemia, spontaneous pneumothorax 25 years ago, multiple psychiatric diagnoses, current tobacco dependence since he was 4 years old, daily etoh use with history of abuse, medication non-compliance The patient was seen and examined this morning at the bedside with present. He was seen yesterday by Dr. Sebastian who recommended open heart surgery. Preoperative testing was initiated. Will calculate STS risk score and discussed with the patient and his . Apparently he did indicate to both nursing and Dr. Polanco this morning that he was not sure he wanted to go through with open- heart surgery but will think about it. Denies any chest pain or shortness of breath currently. Remains in sinus rhythm and he was stable. We did discuss risk factor modification with the patient and his . No other new concerns at this point. Objective - Vital Signs Vital signs: Vital Signs Temp 98.6 F 10/31/23 08:00 Pulse 68 10/31/23 11:00 Resp 14 10/31/23 11:00 BP 112/78 10/31/23 11:00 Pulse Ox 93 L 10/31/23 11:00 FiO2 Intake & Output 10/30/23 10/31/23 10/31/23 18:59 06:59 18:59 Intake Total 723.933 857.079 674.706 Output Total 1450 1300 400 Balance -726.067 -442.921 274.706 Weight 101.2 kg Intake: IV 625 20 Sodium Chloride 0.9% 1, 625 20 000 ml @ 75 mls/hr IV . [id number] [facility] Rx#:[id number] Intake, IV Titration 98.933 127.079 134.706 Amount Heparin Sod,Pork in 0.45% 98.933 101.279 134.706 NaCl 25,000 unit In 0.45 % NaCl 1 250ml.bag @ 9. 712 UNITS/KG/HR 10 mls/hr IV .Q24H [facility] Rx#: [id number] Nitroglycerin-D5w Pmx 50 0 25.8 mg In Dextrose/Water 1 250ml.bag @ 10 MCG/MIN 3 mls/hr IV .Q24H [facility] Rx#: [id number] Oral 710 540 Output: Urine 1450 1300 400 Other: Voiding Method Urinal Urinal Urinal - Exam CONSTITUTIONAL: Appears comfortable, cooperative, no acute distress RESPIRATORY: Lungs sounds diminished bilaterally. Respirations even, nonlabored. Currently on room air with oxygen saturation 93%. CARDIOVASCULAR: S1, S2 present. Regular rate and rhythm, sinus rhythm on telemetry. Palpable peripheral pulses bilaterally. No edema present. No calf pain or tenderness noted GASTROINTESTINAL: Abdomen soft, nontender, nondistended. Active bowel sounds present 4 quadrants. Tolerating diet GENITOURINARY: Continues to void INTEGUMENTARY: Skin is warm and dry NEUROLOGIC: Cranial nerves II through XII intact MUSKULOSKELETAL: Able to move all extremities, strength equal bilaterally, gait normal PSYCHIATRIC: Alert and oriented to person place and time, appropriate affect, intact judgment and insight - Allied health notes Allied health notes reviewed: nursing - Labs CBC & Chem 7: 10/31/23 03:36 10/31/23 08:41 Labs: Abnormal Lab Results - Last 24 Hours (Table) 10/30/23 10/30/23 10/30/23 Range/Units 07:25 14:41 20:49 WBC (3.8-10.6) k/uL APTT 36.0 H 45.5 H (22.0-30.0) sec Sodium 136 L (137-145) mmol/L Glucose 110 H (74-99) mg/dL Troponin I (0.000-0.034) ng/mL Triglycerides 376.00 H (0.00-149.00) mg/dL Cholesterol 270.00 H (0.00-200.00) mg/dL LDL Cholesterol, Calc 159.9 H (0.0-131.0) mg/dL VLDL Cholesterol, Calc 75.20 H (5.00-40.00) mg/dL HDL Cholesterol 34.90 L (40.00-60.00) mg/dL 10/31/23 10/31/23 10/31/23 Range/Units 03:36 08:35 08:41 WBC 11.5 H (3.8-10.6) k/uL APTT 40.2 H (22.0-30.0) sec Sodium (137-145) mmol/L Glucose (74-99) mg/dL Troponin I 2.880 H* (0.000-0.034) ng/mL Triglycerides (0.00-149.00) mg/dL Cholesterol (0.00-200.00) mg/dL LDL Cholesterol, Calc (0.0-131.0) mg/dL VLDL Cholesterol, Calc (5.00-40.00) mg/dL HDL Cholesterol (40.00-60.00) mg/dL Assessment and Plan Assessment: Triple-vessel coronary artery disease, inferior wall STEMI this admission Chest pain, shortness of breath, secondary to above New finding of bilateral internal carotid artery stenosis 50-69% Bidirectional left vertebral flow, questionable partial/incomplete subclavian steal History of CAD with myocardial infarction with multiple previous PCI Hypertension Hyperlipidemia, cholesterol 270, LDL 159, triglycerides 376 Spontaneous pneumothorax 25 years ago Multiple psychiatric diagnoses Current tobacco dependence since he was 4 years old Daily etoh use with history of abuse Medication non-compliance Plan: Continue to maximize medical therapy with aspirin, statin, beta dede Increase activity, ambulate as tolerated Await bedside spirometry, once completed will consult pulmonology for clearance and lung function optimization Patient was counseled regarding need for complete smoking cessation, risk factor modification Medical management of other comorbidities per internal medicine, cardiology More recommendations to follow
--- NOTE | 2023-10-31 14:29 | US ---
EXAMINATION TYPE: US carotid duplex LT DATE OF EXAM: 10/31/2023 COMPARISON: Correlation 10/30/2023 carotid ultrasound. CLINICAL INDICATION: Male, 53 years old with history of possible subclavian steal on the left; Patien t had carotid doppler yesterday that questioned partial subclavian, cardiac team would like limited a ssessment of subclavian artery with doppler Left Vertebral: Some bidirectional flow is noted in the left vertebral artery. Left Subclavian Artery Prx: 336 cm/s Left Subclavian Artery Mid: 87 cm/s IMPRESSION: Transient midsystolic flow reversal in the left vertebral artery with markedly increased peak systoli c velocity in the proximal left subclavian artery. Correlate for significant proximal left subclavi an artery stenosis and early subclavian steal physiology. Consider assessing for potential symptoms o f subclavian steal during a challenge/provocative maneuver.
[2023-10-31] MEDS: HEPARIN SOD,PORK IN 0.45% NACL 25,000 UNIT in 0.45% NACL 1 250ML.BAG IV SCH (15:43)
--- NOTE | 2023-10-31 16:04 | P.CNPUL ---
History of Present Illness Consult date: 10/31/23 Requesting physician: Juana Sebastian Reason for consult: other (Critical care management) Chief complaint: Triple-vessel coronary artery disease, STEMI History of present illness: This is a pleasant 53-year-old male patient with a known history of coronary disease with previous multiple PCI's, hypertension, hyperlipidemia, spontaneous pneumothorax many years ago, chronic and ongoing tobacco dependence since age of 4, chronic and ongoing daily alcohol use and history of noncompliance. He pres ented to the emergency room yesterday just after midnight with complaints of chest pain. He was found to have ST segment elevation in the inferior leads and was taken directly to the [facility]. He is found to have multivessel coronary artery disease including a 99% small-caliber mid RCA, 50-60% proximal circumflex, 100% mid circumflex and 85% proximal LAD stenosis. He was recommended coronary artery bypass grafting. Echocardiogram revealed mildly impaired left ventricle systolic function with ejection fraction 45-50%. Carotid Dopplers revealed moderate stenosis between 50-70% bilaterally. Computed tomography scan of the chest revealed normal heart size. Moderate apical coronary artery calcifications. Mild pulmonary emphysematous changes with linear bandlike areas of scarring in the left lung. White count 11.5. Hemoglobin 14.7. Platelets 225. Sodium 138. Potassium 4.0. Bicarb 26. BUN 13. Creatinine 0.88. Peak troponin 6.9. His FEV1 value is 54% which is 2.16 L of predicted. He is seen today in consultation in the intensive care unit. He is currently resting comfortably in bed. Awake and alert in no acute distress. He is not on home oxygen. Not on home inhalers. Rarely maintaining O2 saturations in the mid 90s on room air. She's afebrile. Hemodynamically st able. Denies any chest pain currently. He is on a heparin drip per weight base protocol. Review of Systems REVIEW OF SYSTEMS: CONSTITUTIONAL: Denies any recent significant weight loss or weight gain. EYES: Denies change in vision. EARS, NOSE, MOUTH, THROAT: Denies headaches, denies sore throat. CARDIOVASCULAR: Positive for chest pain, no palpitations or syncopal episodes. RESPIRATORY: Denies shortness of breath, cough, congestion or hemoptysis. GASTROINTESTINAL: Denies change in appetite, denies abdominal pain GENITOURINARY: Denies hematuria, denies infections. MUSKULOSKELETAL: Denies pain, denies swelling. INTEGUMENTARY: Denies rash, denies eczema. NEUROLOGICAL: Denies recent memory loss, no recent seizure activity. PSYCHIATRIC: Denies anxiety, denies depression. HEMATOLOGIC/LYMPHATIC: Denies anemia, denies enlarged lymph nodes. Past Medical History Past Medical History: Coronary Artery Disease (CAD), Chest Pain / Angina, Hyperlipidemia, Hypertension, Myocardial Infarction ([place]) Additional Past Medical History / Comment(s): multipersonality disorder Last Myocardial Infarction Date:: NOV 2013 History of Any Multi-Drug Resistant Organisms: None Reported Past Surgical History: Heart Catheterization With Stent Additional Past Surgical History / Comment(s): nasal surg as child, chest tube for spontaneous pneumothorax Past Anesthesia/Blood Transfusion Reactions: No Reported Reaction Date of Last Stent Placement:: 2015 Past Psychological History: Anxiety, Bipolar, Depression, Schizophrenia Past Alcohol Use History: Abuse Past Drug Use History: None Reported - Past Family History Mother Family Medical History: No Reported History Additional Family Medical History / Comment(s): of "old age" Father Family Medical History: No Reported History Additional Family Medical History / Comment(s): of "old age" Medications and Allergies Home Medications Medication Instructions Recorded Confirmed Type QUEtiapine FUMARATE [SEROquel] 300 mg PO DAILY@1100 12/21/14 10/30/23 History Allergies Allergy/AdvReac Type Severity Reaction Status Date / Time No Known Allergies Allergy Verified 10/30/23 07:23 Physical Exam Vitals: Vital Signs Temp Pulse Resp BP BP BP Pulse Ox 10/31/23 15:00 74 18 113/70 94 L 10/31/23 14:30 75 13 113/70 95 10/31/23 14:00 85 11 L 100/68 95 10/31/23 13:30 8 L 100/68 96 10/31/23 13:00 77 26 H 92/53 94 L 10/31/23 12:30 29 H 125/73 94 L 10/31/23 12:00 98.2 F 77 6 L 133/74 93 L 10/31/23 11:30 70 17 131/68 93 L 10/31/23 11:00 68 14 112/78 93 L 10/31/23 10:30 70 25 H 94/61 95 10/31/23 10:00 70 15 116/73 93 L 10/31/23 09:30 75 18 124/77 94 L 10/31/23 09:00 78 5 L 112/68 94 L 10/31/23 08:30 80 24 112/82 94 L 10/31/23 08:00 98.6 F 18 113/70 94 L 10/31/23 07:30 84 12 119/76 92 L 10/31/23 07:00 89 18 111/77 94 L 10/31/23 06:30 14 115/72 95 10/31/23 06:00 74 16 99/62 92 L 10/31/23 05:30 73 15 88/56 93 L 10/31/23 05:00 79 12 84/49 94 L 10/31/23 04:30 78 13 105/70 93 L 10/31/23 04:00 98.3 F 88 14 118/87 93 L 10/31/23 03:30 84 14 112/77 93 L 10/31/23 03:00 82 18 97/68 93 L 10/31/23 02:30 72 14 100/71 93 L 10/31/23 02:00 67 18 118/73 92 L 10/31/23 01:30 80 19 106/68 94 L 10/31/23 01:00 74 10 L 92/59 93 L 10/31/23 00:30 67 13 75/52 93 L 10/31/23 00:00 98.9 F 73 11 L 92/56 92 L 10/30/23 23:30 76 17 89/64 96 10/30/23 23:06 71 19 89/64 92 L 10/30/23 23:00 70 13 90/64 93 L 10/30/23 22:30 68 14 83/57 93 L 10/30/23 22:00 68 15 105/73 94 L 10/30/23 21:30 68 16 101/77 93 L 10/30/23 21:00 76 18 95/66 95 18 20:30 79 107/68 95 18 20:00 98.6 F 23 95/63 95 18 19:30 73 17 97/65 93 L 18/ 19:00 78 20 97/71 93 L 10/30/23 18:30 80 22 103/59 93 L 12/18/23 18:00 80 16 110/66 94 L 10/30/23 17:54 110/66 110/63 10/30/23 17:30 80 16 75/53 94 L 10/30/23 17:00 71 16 98/65 92 L 10/30/23 16:30 66 16 85/57 94 L 10/30/23 16:00 98.4 F 72 16 89/62 92 L Intake and Output 10/31/23 10/31/23 10/31/23 06:59 14:59 22:59 Intake Total 737.079 674.706 65.409 Output Total 1000 400 0 Balance -262.921 274.706 65.409 Intake: Intake, IV Titration 127.079 134.706 65.409 Amount Heparin Sod,Pork in 0.45% 101.279 134.706 65.409 NaCl 25,000 unit In 0.45 % NaCl 1 250ml.bag @ 9. 712 UNITS/KG/HR 10 mls/hr IV .Q24H [facility] Rx#: [id number] Nitroglycerin-D5w Pmx 50 25.8 mg In Dextrose/Water 1 250ml.bag @ 10 MCG/MIN 3 mls/hr IV .Q24H [facility] Rx#: [id number] Oral 610 540 Output: Urine 1000 400 0 Other: Voiding Method Urinal Urinal Weight 101.2 kg GENERAL EXAM: Alert, pleasant 53-year-old male, on room air, currently comfortable in no apparent distress. HEAD: Normocephalic. EYES: Normal reaction of pupils, equal size. NOSE: Clear with pink turbinates. THROAT: No erythema or exudates. NECK: No masses, no JVD. CHEST: No chest wall deformity. LUNGS: Equal air entry with no crackles, wheeze, rhonchi or dullness. CVS: S1 and S2 normal with no audible murmur, regular rhythm. ABDOMEN: No hepatosplenomegaly, normal bowel sounds, no guarding or rigidity. SPINE: No scoliosis or deformity SKIN: No rashes CENTRAL NERVOUS SYSTEM: No focal deficits, tone is normal in all 4 extremities. EXTREMITIES: There is no peripheral edema. No clubbing, no cyanosis. Peripheral pulses are intact. Results - Laboratory Findings CBC and BMP: 10/31/23 03:36 10/31/23 08:41 PT/INR, D-dimer PT 10.6 sec (10.0-12.5) 10/31/23 03:36 INR 1.0 (<1.2) 10/31/23 03:36 Abnormal lab findings: Abnormal Labs 10/30/23 10/30/23 10/30/23 00:41 00:41 02:00 WBC 11.7 H Lymphocytes # 4.9 H APTT 123.0 H* Sodium Carbon Dioxide 20 L Glucose 175 H Troponin I Triglycerides Cholesterol LDL Cholesterol, Calc VLDL Cholesterol, Calc HDL Cholesterol 10/30/23 10/30/23 10/30/23 07:25 07:25 07:25 WBC Lymphocytes # APTT 31.6 H Sodium 136 L Carbon Dioxide Glucose 110 H Troponin I 6.950 H* Triglycerides 376.00 H Cholesterol 270.00 H LDL Cholesterol, Calc 159.9 H VLDL Cholesterol, Calc 75.20 H HDL Cholesterol 34.90 L 10/30/23 10/30/23 10/31/23 14:41 20:49 03:36 WBC 11.5 H Lymphocytes # APTT 36.0 H 45.5 H Sodium Carbon Dioxide Glucose Troponin I Triglycerides Cholesterol LDL Cholesterol, Calc VLDL Cholesterol, Calc HDL Cholesterol 10/31/23 10/31/23 08:35 08:41 WBC Lymphocytes # APTT 40.2 H Sodium Carbon Dioxide Glucose Troponin I 2.880 H* Triglycerides Cholesterol LDL Cholesterol, Calc VLDL Cholesterol, Calc HDL Cholesterol - Diagnostic Findings Chest x-ray: image reviewed CT scan - chest: image reviewed Assessment and Plan Assessment: Acute ST segment elevation myocardial infarction in a patient found to have severe triple-vessel disease. He is found to have multivessel coronary artery disease including a 99% small-caliber mid RCA, 50-60% proximal circumflex, 100% mid circumflex and 85% proximal LAD stenosis. He was recommended coronary artery bypass grafting. Echocardiogram revealed mildly impaired left ventricle systolic function with ejection fraction 45-50%. He is being considered for coronary revascularization. Carotid stenosis with carotid Dopplers revealed moderate stenosis between 50-70% bilaterally. Chronic and ongoing tobacco dependence of nearly 50 years. FEV1 value of 54% of predicted. 2.16 Computed tomography scan of the chest revealed mild pulmonary emphysematous changes with linear bandlike areas of scarring in the left lung History of coronary disease with multiple PCI's Hypertension Hyperlipidemia History of spontaneous pneumothorax approximately 25 years ago History of multiple psychiatric diagnoses History of medication noncompliance Plan: The patient was seen and evaluated Cath report, CAT scan of the chest, echocardiogram, carotid Dopplers reviewed Pulmonary function testing, labs and medications reviewed The patient is deliberating whether or not he will have surgery He is educated regarding the importance of the incentive spirometer He is educated regarding the importance of complete smoking cessation He is educated regarding the importance of medication compliance We will continue to follow and make further recommendations based on his clinical status I have personally seen and examined the patient, performed the documentation and the assessment and plan as written. Number of minutes spent on the visit: 20.
[2023-10-31] MEDS: ATORVASTATIN 80 MG TAB PO SCH (20:40)
[2023-10-31] MEDS: LOSARTAN 25 MG TAB PO SCH (20:41)
[2023-10-31] MEDS: QUEtiapine 100 MG TAB PO SCH (20:42)
--- NOTE | 2023-11-01 00:50 | PN ---
PROGRESS NOTE DATE OF SERVICE: 10/31/2023 CHIEF COMPLAINT: STEMI. HISTORY OF PRESENT ILLNESS: This gentleman is doing well. He has had no pain, shortness of breath, arrhythmias, etc. He is being considered for a coronary artery bypass graft. He does have extensive disease. PHYSICAL EXAMINATION: CHEST: Clear. CARDIAC: Normal. ABDOMEN: Soft, nontender. IMPRESSION: 1. ST elevation myocardial infarction. 2. Triple-vessel coronary artery disease. 3. Chronic obstructive pulmonary disease. 4. Schizophrenia. PLAN: Await recommendations of Cardiac Surgery. Given this gentleman's mental problems, it is probably a good idea to have him undergo a psychiatric evaluation before this degree of a procedure. MMODL / IJN: [id number] /
[2023-11-01 03:35] LABS: Basophils # (A) 0.1 k/uL (0-0.2); Basophils % (A) 1 %; Eosinophils # (A) 0.2 k/uL (0-0.7); Eosinophils % (A) 2 %; HCT 44.6 % (39.0-53.0); HGB 15.2 gm/dL (13.0-17.5); Lymphocytes # (A) 3.3 k/uL (1.0-4.8); Lymphocytes % (A) 37 %; MCH 30.3 pg (25.0-35.0); MCV 89.2 fL (80.0-100.0); Mean Platelet Volume 7.5; Monocytes # (A) 0.5 k/uL (0-1.0); Monocytes % (A) 6 %; Neutrophils # (A) 4.7 k/uL (1.3-7.7); Neutrophils % (A) 53 %; Platelet Count 236 k/uL (150-450); RDW 14.3 % (11.5-15.5); WBC 8.9 k/uL (3.8-10.6)
[2023-11-01 04:33] LABS: African American GFR (CKD) >90 (>60 ml/min/1.73 sqM); Anion Gap 8 mmol/L; Blood Urea Nitrogen 14 mg/dL (9-20); Calcium 9.6 mg/dL (8.4-10.2); Carbon Dioxide 23 mmol/L (22-30); Chloride 106 mmol/L (98-107); Glucose 112 mg/dL (74-99); Non-African American GFR(CKD) 87 (>60 ml/min/1.73 sqM); Potassium 4.2 mmol/L (3.5-5.1); Sodium 137 mmol/L (137-145)
[2023-11-01] MEDS: NITROGLYCERIN-D5W PMX 50 MG in DEXTROSE/WATER 1 250ML.BAG IV SCH (06:29)
[2023-11-01] MEDS: ASPIRIN 81 MG PO SCH (09:01)
[2023-11-01] MEDS: MUPIROCIN 2% OINT 22 GM TUBE NASAL SCH ×2 (09:01→21:36)
[2023-11-01] MEDS: METOPROLOL TARTRATE 12.5 MG TAB PO SCH ×2 (09:01→21:35)
[2023-11-01] MEDS: FOLIC ACID 1 MG TAB PO SCH (09:01)
[2023-11-01] MEDS: THIAMINE 100 MG TAB PO SCH (09:01)
--- NOTE | 2023-11-01 10:18 | P.PN ---
Subjective Progress Note Date: 11/01/23 Principal diagnosis: Triple-vessel coronary artery disease, inferior wall STEMI this admission, new finding of bilateral internal carotid artery stenosis 50-69%, bidirectional left vertebral flow, questionable partial/incomplete subclavian steal. History of CAD with myocardial infarction with multiple previous PCI, hypertension, hyperlipidemia, spontaneous pneumothorax 25 years ago, multiple psychiatric diagnoses, current tobacco dependence since he was 4 years old, daily etoh use with history of abuse, medication non-compliance The patient was seen and examined this morning at the bedside. Denies any chest pain or shortness of breath currently. Remains in sinus rhythm and hemodynamically stable. We did discuss risk factor modification with the patient and his . This morning patient is agreeable to surgery and we will board him for Monday11/03/23. We will send patient for CTA of left subclavian with reconstruction to rule out subclavian steal. No other new concerns at this point. Objective - Vital Signs Vital signs: Vital Signs Temp 98.0 F 11/01/23 08:00 Pulse 81 11/01/23 09:00 Resp 11 L 11/01/23 09:00 BP 99/64 11/01/23 09:00 Pulse Ox 95 11/01/23 09:00 FiO2 Intake & Output 10/31/23 11/01/23 11/01/23 18:59 06:59 18:59 Intake Total 1280.115 200 400 Output Total 1000 1850 0 Balance 280.115 -1650 400 Weight 99.8 kg Intake: Intake, IV Titration 200.115 Amount Heparin Sod,Pork in 0.45% 200.115 NaCl 25,000 unit In 0.45 % NaCl 1 250ml.bag @ 9. 712 UNITS/KG/HR 10 mls/hr IV .Q24H [facility] Rx#: [id number] Oral 1080 200 400 Output: Urine 1000 1850 0 Other: Voiding Method Urinal Urinal Urinal # Voids 0 1 - Exam CONSTITUTIONAL: Appears comfortable, cooperative, no acute distress RESPIRATORY: Lungs sounds diminished bilaterally. Respirations even, nonlabored. Currently on room air with oxygen saturation 95%. Able to achieve 2500 mL on incentive spirometry CARDIOVASCULAR: S1, S2 present. Regular rate and rhythm, sinus rhythm on telemetry. Palpable peripheral pulses bilaterally. No edema present. No calf pain or tenderness noted GASTROINTESTINAL: Abdomen soft, nontender, nondistended. Active bowel sounds present 4 quadrants. Tolerating diet GENITOURINARY: Continues to void INTEGUMENTARY: Skin is warm and dry NEUROLOGIC: Cranial nerves II through XII intact MUSKULOSKELETAL: Able to move all extremities, strength equal bilaterally, gait normal PSYCHIATRIC: Alert and oriented to person place and time, appropriate affect, intact judgment and insight - Allied health notes Allied health notes reviewed: nursing - Labs CBC & Chem 7: 11/01/23 03:20 11/01/23 03:20 Labs: Abnormal Lab Results - Last 24 Hours (Table) 10/31/23 11/01/23 11/01/23 Range/Units 16:33 03:20 03:20 APTT 57.1 H 50.7 H (22.0-30.0) sec Glucose 112 H (74-99) mg/dL Microbiology - Last 24 Hours (Table) 10/30/23 09:30 Nasal Screen MRSA/MSSA - Final Nasal Swab Assessment and Plan Assessment: Triple-vessel coronary artery disease, inferior wall STEMI this admission Chest pain, shortness of breath, secondary to above New finding of bilateral internal carotid artery stenosis 50-69% Bidirectional left vertebral flow, questionable partial/incomplete subclavian steal History of CAD with myocardial infarction with multiple previous PCI Hypertension Hyperlipidemia, cholesterol 270, LDL 159, triglycerides 376 Spontaneous pneumothorax 25 years ago Multiple psychiatric diagnoses Current tobacco dependence since he was 4 years old Moderate COPD with preoperative FEV1 54% Daily etoh use with history of abuse Medication non-compliance Plan: Continue to maximize medical therapy with aspirin, statin, beta dede Increase activity, ambulate as tolerated Will have CTA of left subclavian artery completed today to rule out subclavian steal Our plan is for myocardial revascularization with left internal mammary artery, endoscopic vein and left radial artery harvest, ligation of the left atrial appendage by Dr. Sebastian 11/03/23 Patient was counseled regarding need for complete smoking cessation, risk factor modification Medical management of other comorbidities per internal medicine, cardiology More recommendations to follow
--- NOTE | 2023-11-01 10:34 | P.PN ---
Subjective Progress Note Date: 11/01/23 This is a pleasant 53-year-old male patient with a known history of coronary disease with previous multiple PCI's, hypertension, hyperlipidemia, spontaneous pneumothorax many years ago, chronic and ongoing tobacco dependence since age of 4, chronic and ongoing daily alcohol use and history of noncompliance. He presented to the emergency room yesterday just after midnight with complaints of chest pain. He was found to have ST segment elevation in the inferior leads and was taken directly to the [employer]. He is found to have multivessel coronary artery disease including a 99% small-caliber mid RCA, 50-60% proximal circumflex, 100% mid circumflex and 85% proximal LAD stenosis. He was recommended coronary artery bypass grafting. Echocardiogram revealed mildly impaired left ventricle systolic function with ejection fraction 45-50%. Carotid Dopplers revealed moderate stenosis between 50-70% bilaterally. Computed tomography scan of the chest revealed normal heart size. Moderate apical coronary artery calcifications. Mild pulmonary emphysematous changes with linear bandlike areas of scarring in the left lung. White count 11.5. Hemoglobin 14.7. Platelets 225. Sodium 138. Potassium 4.0. Bicarb 26. BUN 13. Creatinine 0.88. Peak troponin 6.9. His FEV1 value is 54% which is 2.16 L of predicted. He is seen today in consultation in the intensive care unit. He is currently resting comfortably in bed. Awake and alert in no acute distress. He is not on home oxygen. Not on home inhalers. Rarely maintaining O2 saturations in the mid 90s on room air. He's afebrile. Hemodynamically stable. Denies any chest pain currently. He is on a heparin drip per weight base protocol. The patient is seen today 11/01/2023 in follow-up in the intensive care unit. He is awake and alert in no acute distress. He currently denies any chest discomfort. He is maintaining good O2 saturations in the mid 90s on room air. He's afebrile. Hemodynamically stable. Continued on a heparin drip. White count 8.9. Hemoglobin 15.2. Platelets 236. Sodium 137. Potassium 4.2. Bicarb 23. BUN 14. Creatinine 0.98. Glucose 112. He is working with the incentive spirometer. Objective - Vital Signs Vital signs: Vital Signs Temp 98.0 F 11/01/23 08:00 Pulse 81 12/20/23 09:00 Resp 11 L 11/01/23 09:00 BP 99/64 11/01/23 09:00 Pulse Ox 95 11/01/23 09:00 FiO2 Intake & Output 10/31/23 11/01/23 11/01/23 18:59 06:59 18:59 Intake Total 1280.115 200 400 Output Total 1000 1850 0 Balance 280.115 -1650 400 Weight 99.8 kg Intake: Intake, IV Titration 200.115 Amount Heparin Sod,Pork in 0.45% 200.115 NaCl 25,000 unit In 0.45 % NaCl 1 250ml.bag @ 9. 712 UNITS/KG/HR 10 mls/hr IV .Q24H [facility] Rx#: [id number] Oral 1080 200 400 Output: Urine 1000 1850 0 Other: Voiding Method Urinal Urinal Urinal # Voids 0 1 - Exam GENERAL EXAM: Alert, 53-year-old male, sitting up in bed, on room air, comfortable in no apparent distress. HEAD: Normocephalic. EYES: Normal reaction of pupils, equal size. NOSE: Clear with pink turbinates. THROAT: No erythema or exudates. NECK: No masses, no JVD. CHEST: No chest wall deformity. LUNGS: Equal air entry with no crackles, wheeze, rhonchi or dullness. CVS: S1 and S2 normal with no audible murmur, regular rhythm. ABDOMEN: No hepatosplenomegaly, normal bowel sounds, no guarding or rigidity. SPINE: No scoliosis or deformity SKIN: No rashes CENTRAL NERVOUS SYSTEM: No focal deficits, tone is normal in all 4 extremities. EXTREMITIES: There is no peripheral edema. No clubbing, no cyanosis. Peripheral pulses are intact. - Labs CBC & Chem 7: 11/01/23 03:20 11/01/23 03:20 Labs: Abnormal Lab Results - Last 24 Hours (Table) 10/31/23 11/01/23 11/01/23 Range/Units 16:33 03:20 03:20 APTT 57.1 H 50.7 H (22.0-30.0) sec Glucose 112 H (74-99) mg/dL Microbiology - Last 24 Hours (Table) 10/30/23 09:30 Nasal Screen MRSA/MSSA - Final Nasal Swab Assessment and Plan Assessment: Acute ST segment elevation myocardial infarction in a patient found to have severe triple-vessel disease. He is found to have multivessel coronary artery disease including a 99% small-caliber mid RCA, 50-60% proximal circumflex, 100% mid circumflex and 85% proximal LAD stenosis. He was recommended coronary artery bypass grafting. Echocardiogram revealed mildly impaired left ventricle systolic function with ejection fraction 45-50%. Plan is for coronary revascularization on 11/03/2023. Carotid stenosis with carotid Dopplers revealed moderate stenosis between 50-70% bilaterally. Left incomplete subclavian steal, angiogram pending Chronic and ongoing tobacco dependence of nearly 50 years. FEV1 value of 54% of predicted. Computed tomography scan of the chest revealed mild pulmonary emphysematous changes with linear bandlike areas of scarring in the left lung History of coronary disease with multiple PCI's Hypertension Hyperlipidemia History of spontaneous pneumothorax approximately 25 years ago History of multiple psychiatric diagnoses History of medication noncompliance Plan: The patient was seen and evaluated Labs and medications reviewed The patient is agreeable to surgery Plan is for surgery on 11/03/2023 Again educated regarding the importance of the incentive spirometer Again educated regarding the importance of complete smoking cessation We will continue to follow I have personally seen and examined the patient, performed the documentation and the assessment and plan as written. Number of minutes spent on the visit: 10.
[2023-11-01] MEDS: HEPARIN SOD,PORK IN 0.45% NACL 25,000 UNIT in 0.45% NACL 1 250ML.BAG IV SCH (13:13)
--- NOTE | 2023-11-01 13:29 | CT ---
EXAMINATION TYPE: CT angio neck DATE OF EXAM: 11/01/2023 COMPARISON: Doppler ultrasound 10/31/2023 HISTORY: 53-year-old male Left subclavian steal TECHNIQUE: Contiguous axial scanning of the neck performed with IV Contrast, patient injected with 65 ml mL of Isovue 370. Coronal and sagittal MIP reconstructions performed. 3-D reconstructions generat ed on a dedicated independent workstation. CT DLP: 678.3 mGycm Automated exposure control for dose reduction was used. FINDINGS: There is emphysematous change in the visualized upper lungs and some possible postsurgical change as well. Conventional arthrosis of branching anatomy. Moderate bilateral palatine tonsillar hypertrophy with punctate calcifications measuring up to 5 mm s uggesting sequela of prior infection. The right common and right internal carotid arteries are widely patent with only minimal calcificatio n in the carotid bulb. The left common and left internal carotid arteries are patent without significant stenosis. Moderate arthroscopic calcifications of the left carotid bifurcation contributing to a mild, less than 20% keke nosis. There is irregular noncalcified plaque within the left subclavian artery just prior to the takeoff of the nondominant left vertebral artery. For example, refer to axial image 118 and 127 of series 404. Nondominant left vertebral artery remains patent. Atherosclerotic calcifications contributing to possible moderate to severe stenosis, supraclinoid lef t ICA. No osseous destructive process. IMPRESSION: 1. IRREGULAR NONCALCIFIED PLAQUE WITHIN THE LEFT SUBCLAVIAN ARTERY JUST PRIOR TO THE TAKEOFF OF THE N ONDOMINANT LEFT VERTEBRAL ARTERY. THIS CAUSES MODERATE TO SEVERE IRREGULAR FOCAL STENOSIS. CORRELATE FOR ANY ACTIVE SYMPTOMS OF SUBCLAVIAN STEAL. 2. MILD, LESS THAN 20% PROXIMAL LEFT ICA STENOSIS. 3. ATHEROSCLEROTIC CALCIFICATIONS IN THE INTRACRANIAL LEFT CAROTID SIPHON WHICH MAY CONTRIBUTE TO MOD ERATE TO SEVERE STENOSIS AT THE SUPRACLINOID LEFT ICA.
--- NOTE | 2023-11-01 13:40 | PN ---
PROGRESS NOTE SUBJECTIVE: Mr. Harding, this gentleman with severe triple-vessel disease, came with non-ST elevation NM, was advised bypass surgery, had a carotid Doppler performed as well. He has moderate disease in the carotids, not critical. Yesterday after some deliberation and discussion, this morning he made a decision to proceed with aortocoronary bypass surgery. The surgeons will be involved and they will talk to him further. OBJECTIVE: VITALS: Stable. HEART: S1, S2 heard normally, short systolic. LUNGS: Revealed decent air entry. ABDOMEN: Unchanged. EXTREMITIES: Lower extremity exam unchanged. The patient promises to make some lifestyle changes and be compliant with medications after surgery. We will await further input from cardiac surgery and continue current medications for now. MMODL / IJN: [id number] /
[2023-11-01] MEDS: SODIUM CHLORIDE 0.9% 1,000 ML IV SCH (15:28)
--- NOTE | 2023-11-01 16:05 | P.PN ---
Progress Note - Text Progress Note Date: 11/01/23 5 meter walk test was completed with the patient, tolerated well without any complaints, time 1: 2.23 seconds, time 2: 2.05 seconds, time 3: 1.80 seconds.
[2023-11-01] MEDS: LOSARTAN 25 MG TAB PO SCH (21:35)
[2023-11-01] MEDS: ATORVASTATIN 80 MG TAB PO SCH (21:35)
[2023-11-01] MEDS: QUEtiapine 100 MG TAB PO SCH (22:29)
--- NOTE | 2023-11-02 05:23 | PN ---
PROGRESS NOTE DATE OF SERVICE: 11/01/2023 CHIEF COMPLAINT: Acute MA. HISTORY OF PRESENT ILLNESS: This gentleman is stable and doing well and he has had no symptoms. It is planned that he will go Monday for coronary artery bypass graft. He has been found to have subclavian steal and clearly has diffuse atherosclerosis. PHYSICAL EXAMINATION: VITAL SIGNS: Normal. Color is good. Hydration is good. CHEST: Clear. CARDIAC: Normal. ABDOMEN: Soft, nontender. IMPRESSION: 1. NSTEMI. 2. Triple-vessel coronary artery disease. 3. Generalized atherosclerotic cardiovascular disease. 4. Chronic obstructive pulmonary disease. 5. History of depression and possible bipolar disease. PLAN: 1. Surgery on Monday. 2. Likely discussion with the patient regarding his disease, current management, and the future care as well. He has been well known to deny and refuse every medical treatment or recommendation suggested him over the years. He has refused annual well visits, preventative measures, taking any medications that were prescribed, etc. I asked him if he understood that this would all change dramatically after he leaves the hospital. I also offered the option of seeing Psychiatry before he had it done, and he felt that he is not depressed and understood these life changing experiences and would be able to be compliant. MMODL / IJN: [id number] /
[2023-11-02 05:50] VITALS: TEMP 98.3
[2023-11-02] MEDS: HEPARIN SOD,PORK IN 0.45% NACL 25,000 UNIT in 0.45% NACL 1 250ML.BAG IV SCH (08:05)
[2023-11-02] MEDS: ASPIRIN 81 MG PO SCH (08:16)
[2023-11-02] MEDS: FOLIC ACID 1 MG TAB PO SCH (08:16)
[2023-11-02] MEDS: THIAMINE 100 MG TAB PO SCH (08:16)
[2023-11-02] MEDS: MUPIROCIN 2% OINT 22 GM TUBE NASAL SCH (08:16)
[2023-11-02] MEDS: METOPROLOL TARTRATE 12.5 MG TAB PO SCH (08:16)
[2023-11-02 08:39] LABS: HGB 15.5 gm/dL (13.0-17.5); MCH 29.7 pg (25.0-35.0); MCHC 33.1 g/dL (31.0-37.0); MCV 89.8 fL (80.0-100.0); Mean Platelet Volume 7.8; Platelet Count 291 k/uL (150-450); RBC 5.23 m/uL (4.30-5.90); RDW 14.4 % (11.5-15.5); WBC 9.5 k/uL (3.8-10.6)
[2023-11-02 08:51] LABS: ALT 43 U/L (4-49); AST 46 U/L (17-59); African American GFR (CKD) >90 (>60 ml/min/1.73 sqM); Albumin 4.2 g/dL (3.5-5.0); Alkaline Phosphatase 112 U/L (38-126); Anion Gap 10 mmol/L; Blood Urea Nitrogen 14 mg/dL (9-20); Calcium 9.9 mg/dL (8.4-10.2); Carbon Dioxide 26 mmol/L (22-30); Chloride 103 mmol/L (98-107); Glucose 110 mg/dL (74-99); Magnesium 2.1 mg/dL (1.6-2.3); Non-African American GFR(CKD) 88 (>60 ml/min/1.73 sqM); Potassium 4.4 mmol/L (3.5-5.1); Sodium 139 mmol/L (137-145); Total Bilirubin 0.5 mg/dL (0.2-1.3)
[2023-11-02 08:56] LABS: INR 0.9 (<1.2); Partial Thromboplastin Time 45.3 sec (22.0-30.0); Prothrombin Time 10.2 sec (10.0-12.5)
--- NOTE | 2023-11-02 10:19 | P.PN ---
Subjective Progress Note Date: 11/02/23 Principal diagnosis: Triple-vessel coronary artery disease, inferior wall STEMI this admission, new finding of bilateral internal carotid artery stenosis 50-69%, bidirectional left vertebral flow, questionable partial/incomplete subclavian steal. History of CAD with myocardial infarction with multiple previous PCI, hypertension, hyperlipidemia, spontaneous pneumothorax 25 years ago, multiple psychiatric diagnoses, current tobacco dependence since he was 4 years old, daily etoh use with history of abuse, medication non-compliance The patient was seen and examined this morning at the bedside. Denies any chest pain or shortness of breath currently. Remains in sinus rhythm and hemodynamically stable. At this time the patient is refusing surgery which was scheduled for tomorrow. He states he would like to go home and read about it and explore other options, and that he might be willing to consent for surgery in about a month. We did discuss that he is at risk for sudden cardiac , the patient verbalized understanding and accepted this risk. He does indicate that he will be compliant with his medications which were reinforced as to their importance. Also reinforced the importance of complete smoking cessation and heart healthy/Mediterranean diet. Discussed very clearly the patient's modifiable risk factors. The patient did ask appropriate questions about diet and exercise. He did state his is aware of his decision as well. States he did also discuss with a doctor who was in his room this morning. He states he plans to leave today at 11 AM. Objective - Vital Signs Vital signs: Vital Signs Temp 98.3 F 11/02/23 04:00 Pulse 71 11/02/23 04:00 Resp 18 11/02/23 04:00 BP 105/59 11/02/23 04:00 Pulse Ox 93 L 11/02/23 04:00 FiO2 Intake & Output 11/01/23 11/02/23 11/02/23 18:59 06:59 18:59 Intake Total 1310 250 118 Output Total 0 Balance 1310 250 118 Intake: Intake, IV Titration 250 250 Amount Heparin Sod,Pork in 0.45% 250 250 NaCl 25,000 unit In 0.45 % NaCl 1 250ml.bag @ 9. 712 UNITS/KG/HR 10 mls/hr IV .Q24H [facility] Rx#: [id number] Oral 1060 118 Output: Urine 0 Other: Voiding Method Toilet Toilet Urinal Urinal # Voids 1 1 - Exam CONSTITUTIONAL: Appears comfortable, cooperative, no acute distress RESPIRATORY: Lungs sounds diminished bilaterally. Respirations even, nonlabored. Currently on room air with oxygen saturation 97%. Able to achieve 2500 mL on incentive spirometry CARDIOVASCULAR: S1, S2 present. Regular rate and rhythm, sinus rhythm on telemetry. Palpable peripheral pulses bilaterally. No edema present. No calf pain or tenderness noted GASTROINTESTINAL: Abdomen soft, nontender, nondistended. Active bowel sounds present 4 quadrants. Tolerating diet GENITOURINARY: Continues to void INTEGUMENTARY: Skin is warm and dry NEUROLOGIC: Cranial nerves II through XII intact MUSKULOSKELETAL: Able to move all extremities, strength equal bilaterally, gait normal PSYCHIATRIC: Alert and oriented to person place and time, appropriate affect, intact judgment and insight - Allied health notes Allied health notes reviewed: nursing - Labs CBC & Chem 7: 11/02/23 07:52 11/02/23 07:52 Labs: Abnormal Lab Results - Last 24 Hours (Table) 11/02/23 11/02/23 Range/Units 07:52 07:52 APTT 45.3 H (22.0-30.0) sec Glucose 110 H (74-99) mg/dL Assessment and Plan Assessment: Triple-vessel coronary artery disease, inferior wall STEMI this admission Chest pain, shortness of breath, secondary to above New finding of bilateral internal carotid artery stenosis 50-69% Bidirectional left vertebral flow, questionable partial/incomplete subclavian steal History of CAD with myocardial infarction with multiple previous PCI Hypertension Hyperlipidemia, cholesterol 270, LDL 159, triglycerides 376 Spontaneous pneumothorax 25 years ago Multiple psychiatric diagnoses Current tobacco dependence since he was 4 years old Moderate COPD with preoperative FEV1 54% Daily etoh use with history of abuse Medication non-compliance Plan: Continue to maximize medical therapy with aspirin, statin, beta dede Increase activity, ambulate as tolerated Our plan was for CABG by Dr. Sebastian 11/03/23, however patient is currently refusing Patient was counseled regarding need for complete smoking cessation, risk factor modification Medical management of other comorbidities per internal medicine, cardiology
[2023-11-02 10:54] VITALS: BP 104/70; PULSE 82; RESP 16
--- NOTE | 2023-11-02 13:20 | PN ---
PROGRESS NOTE SUBJECTIVE: Mr. Harding yesterday decided to proceed with aortocoronary bypass surgery and is scheduled for tomorrow, but he has changed his mind today. He does not want to have any surgery done. He wants to go home on medical therapy. He will sign against medical advice and leave. I am recommending that he should have revascularization procedure, but the patient is absolutely refusing. He will sign against medical advise, but he promises to follow up with Dr. Wagner in the office. He will be sent home on medications. PHYSICAL EXAMINATION: VITALS: Stable. NECK: No JVD. HEART: S1, S2 heard normally. LUNGS: Clear. ABDOMEN: Unchanged. EXTREMITIES: Lower extremity exam unchanged. The patient is fully aware of the consequences of the LCA an of non intervened CAD and possibility of having a repeat infarction and sudden . Prognosis remains poor without intervention. Patient is adamant, wishes to go home. MMODL / IJN: [id number] /
--- NOTE | 2023-11-02 14:58 | P.PN ---
Subjective Progress Note Date: 11/02/23 Principal diagnosis: Chest pain. This is a pleasant 53-year-old male patient with a known history of coronary disease with previous multiple PCI's, hypertension, hyperlipidemia, spontaneous pneumothorax many years ago, chronic and ongoing tobacco dependence since age of 4, chronic and ongoing daily alcohol use and history of noncompliance. He presented to the emergency room yesterday just after midnight with complaints of chest pain. He was found to have ST segment elevation in the inferior leads and was taken directly to the [employer]. He is found to have multivessel coronary artery disease including a 99% small-caliber mid RCA, 50-60% proximal circumflex, 100% mid circumflex and 85% proximal LAD stenosis. He was recommended coronary artery bypass grafting. Echocardiogram revealed mildly impaired left ventricle systolic function with ejection fraction 45-50%. C arotid Dopplers revealed moderate stenosis between 50-70% bilaterally. Computed tomography scan of the chest revealed normal heart size. Moderate apical coronary artery calcifications. Mild pulmonary emphysematous changes with linear bandlike areas of scarring in the left lung. White count 11.5. Hemoglobin 14.7. Platelets 225. Sodium 138. Potassium 4.0. Bicarb 26. BUN 13. Creatinine 0.88. Peak troponin 6.9. His FEV1 value is 54% which is 2.16 L of predicted. He is seen today in consultation in the intensive care unit. He is currently resting comfortably in bed. Awake and alert in no acute distress. He is not on home oxygen. Not on home inhalers. Rarely maintaining O2 satur ations in the mid 90s on room air. He's afebrile. Hemodynamically stable. Denies any chest pain currently. He is on a heparin drip per weight base protocol. The patient is seen today 11/01/2023 in follow-up in the intensive care unit. He is awake and alert in no acute distress. He currently denies any chest discomfort. He is maintaining good O2 saturations in the mid 90s on room air. He's afebrile. Hemodynamically stable. Continued on a heparin drip. White count 8.9. Hemoglobin 15.2. Platelets 236. Sodium 137. Potassium 4.2. Bicarb 23. BUN 14. Creatinine 0.98. Glucose 112. He is working with the incentive spirometer. Progress note dated 11/02/2023. Apparently, the patient was scheduled to have open heart surgery on Monday, but decided to go home. He states that he was going to look up on [employer] whether or not he should have open-heart surgery. The patient was seen today in room 384. He was on room air. No IV fluids. CBC was normal including white count, hemog lobin, hematocrit, and platelet count. PTT was 45.3. Sodium 139, potassium 4.4, chlorides 103, CO2 26, BUN 14, and creatinine 0.97. His most recent troponin was 2.88. Objective - Vital Signs Vital signs: Vital Signs Temp 98.3 F 11/02/23 04:00 Pulse 82 11/02/23 08:00 Resp 16 11/02/23 08:00 BP 104/70 11/02/23 08:00 Pulse Ox 93 L 11/02/23 08:00 FiO2 Intake & Output 11/01/23 11/02/23 11/02/23 18:59 06:59 18:59 Intake Total 1310 250 118 Output Total 0 Balance 1310 250 118 Intake: Intake, IV Titration 250 250 Amount Heparin Sod,Pork in 0.45% 250 250 NaCl 25,000 unit In 0.45 % NaCl 1 250ml.bag @ 9. 712 UNITS/KG/HR 10 mls/hr IV .Q24H [facility] Rx#: [id number] Oral 1060 118 Output: Urine 0 Other: Voiding Method Toilet Toilet Toilet Urinal Urinal Urinal # Voids 1 1 - Exam No acute distress, oriented 3. Currently on room air. HEENT examination is grossly unremarkable. Mucous membranes are moist. No oral lesions. Neck supple. Full range of motion. No adenopathy thyromegaly or neck vein distention. Cardiovascular examination reveals regular rhythm rate. S1-S2 normal. No S3 or S4. No discernible murmur noted. Heart rate 79 bpm. Lungs reveal clear breath sounds. Breath sounds are equal bilaterally. No adventitious lung sounds including wheezes rhonchi or crackles. Abdomen soft bowel sounds are heard. No masses or tenderness. Extremities are intact. No cyanosis clubbing or edema. Skin is without rash or lesion. Neurologic examination is brief but nonfocal. - Labs CBC & Chem 7: 11/02/23 07:52 11/02/23 07:52 Labs: Abnormal Lab Results - Last 24 Hours (Table) 11/02/23 11/02/23 Range/Units 07:52 07:52 APTT 45.3 H (22.0-30.0) sec Glucose 110 H (74-99) mg/dL Assessment and Plan Assessment: Acute ST segment elevation myocardial infarction in a patient found to have severe triple-vessel disease. He is found to have multivessel coronary artery disease including a 99% small-caliber mid RCA, 50-60% proximal circumflex, 100% mid circumflex and 85% proximal LAD stenosis. He was recommended coronary artery bypass grafting. Echocardiogram revealed mildly impaired left ventricle systolic function with ejection fraction 45-50%. Plan is for coronary re vascularization on 11/03/2023. Carotid stenosis with carotid Dopplers revealed moderate stenosis between 50-70% bilaterally. Left incomplete subclavian steal, angiogram pending. Chronic and ongoing tobacco dependence of nearly 50 years. FEV1 value of 54% of predicted. Computed tomography scan of the chest revealed mild pulmonary emphysematous changes with linear bandlike areas of scarring in the left lung. History of coronary disease with multiple PCI's. Hypertension. Hyperlipidemia. History of spontaneous pneumothorax approximately 25 years ago. History of multiple psychiatric diagnoses. History of medication noncompliance. Plan: Plan dated 11/02/2023. This patient apparently had a change in heart. Initially he wasn't going to have surgery, that he agreed to have surgery, and now, does not want surgery. He states that he wants more stents. He also mentioned that he was going to look up open heart surgery on [employer], to learn more about it. Labs, x-rays, and medications are reviewed. The patient is counseled not to be discharged but does so anyway. Additional recommendations and suggestions are forthcoming. Time with Patient: Less than 30
[2023-11-03] MEDS ORDERED: CLOPIDOGREL 75 MG TAB PO SCH (09:00)
--- NOTE | 2023-11-04 20:20 | DS ---
DISCHARGE SUMMARY CHIEF COMPLAINT: Chest pain. HISTORY OF PRESENT ILLNESS AND PHYSICAL EXAMINATION: Details of this man's history and physical can be found in the initial workup. LABORATORY STUDIES: While he was in the hospital, he had laboratory studies, details of which can be found in the laboratory section of his chart. COURSE IN THE HOSPITAL: After admission, he was placed on bedrest and started on intravenous fluids and taken to the laboratory veterinarian. He underwent stenting and was found to have advanced triple-vessel coronary artery disease. Postoperatively, he was referred to Cardiac Surgery, who talked to the patient about coronary artery bypass grafting to which he initially agreed. Then, on the 02 November, he refused the test and signed out AMA. FINAL DIAGNOSES: 1. ST elevation myocardial infarction. 2. Advanced triple-vessel coronary artery disease. 3. Atherosclerotic cardiovascular disease. 4. Left-sided subclavian steal. 5. Chronic obstructive pulmonary disease. 6. Borderline personality. OPERATIONS: Cardiac cath with stenting. CONSULTATIONS: Cardiology and Cardiac Surgery. MMODL / IJN: [id number] /
== END 2023-11-02 12:26 | disposition left against medical advice (07) | DRG 281 ==
LOC: EC 00:24 → 2SICU 00:29 → EC 00:59 → 3SCARD 11-01 15:11
PROVIDERS: ADMIT Family Medicine; ATTEND Family Medicine
PROC: 4A023N7 Measurement of Cardiac Sampling and Pressure, Left Heart, Percutaneous Approach (ICD-10-PCS; principal; 2023-10-30 00:47)
PROC: B2111ZZ Fluoroscopy of Multiple Coronary Arteries using Low Osmolar Contrast (ICD-10-PCS; 2023-10-30 00:47)
DX: I21.19 ST elevation (STEMI) myocardial infarction involving other coronary artery of inferior wall (principal); T82.855A Stenosis of coronary artery stent, initial encounter; I25.110 Atherosclerotic heart disease of native coronary artery with unstable angina pectoris; F20.9 Schizophrenia, unspecified; I65.23 Occlusion and stenosis of bilateral carotid arteries; E78.5 Hyperlipidemia, unspecified; Z91.148 Patient's other noncompliance with medication regimen for other reason; F17.210 Nicotine dependence, cigarettes, uncomplicated; Z71.6 Tobacco abuse counseling; I10 Essential (primary) hypertension; J44.9 Chronic obstructive pulmonary disease, unspecified; F31.9 Bipolar disorder, unspecified; F41.9 Anxiety disorder, unspecified; I25.2 Old myocardial infarction; Z79.82 Long term (current) use of aspirin; Z79.899 Other long term (current) drug therapy; Z91.199 Patient's noncompliance with other medical treatment and regimen due to unspecified reason; Z95.1 Presence of aortocoronary bypass graft; Z98.61 Coronary angioplasty status; Y84.8 Other medical procedures as the cause of abnormal reaction of the patient, or of later complication, without mention of misadventure at the time of the procedure; Z53.29 Procedure and treatment not carried out because of patient's decision for other reasons
CPT/HCPCS: 36415; 70498; 71045; 71250; 76937; 80048; 80053; 80061; 80074; 83036; 83695; 83735; 84443; 84484; 85025; 85027; 85610; 85730; 86850; 86900; 86901; 87070; 93005; 93306; 93458; 93880; 93970; 94150; 96374; 96375; 99285